=== PATIENT | female | born 1975 | race Caucasian/White ===

== ENCOUNTER 2018-08-29 08:34 | Emergency (ER) | payer MEDICAID ==
[~2018-08-29] VITALS: Ht 154.9 cm; Wt 151.0 kg
[2018-08-29 08:40] VITALS: BP 112/55
--- NOTE | 2018-08-29 09:01 | NUR ---
PATIENT PRESENTS TO ED WITH C/O WORSENING HEADACHE THROBBING X 8 DAYS--BUT CONSTANT X 2 DAYS NOW WITH NAUSEA---FATIGUED ADMITS C-PAP NOT FITTING /WORKING FOR HER WELL---ALSO ADDS DEPRESSED THAT HER IS ADMITTED FULL CLEAR SPEECH, AMBULATORY WITH STEADY GAIT, EQUAL OILSEED MEAT PRESSER, NO FACIAL DROOP NOTED--- .DENIES V/D; SKIN IS PINK/WARM/DRY; AAOX4 WITH EVEN AND STEADY GAIT; LUNGS CLEAR BL; HR EVEN AND REGULAR; PT DENIES ANY FEVER, CP, SOB, OR COUGH AT THIS TIME; PATIENT STATES PAIN OF 10/10 AT THIS TIME; VSS; PATIENT POSITIONED FOR COMFORT; HOB ELEVATED; BEDRAILS UP X2; BED DOWN. ER MD MADE AWARE OF PT STATUS.
[2018-08-29] MEDS ORDERED: KETOROLAC 30 MG/ML VIAL IVP ONE (09:05)
[2018-08-29] MEDS ORDERED: PROCHLORPERAZINE 10 MG/2 ML VIAL IVP ONE (09:05)
--- NOTE | 2018-08-29 09:55 | NUR ---
pt sitting edge perry brady c/o headache persist---closed curtains , turned off lights to minimize external stimuli---md notified pt remains with headache-- will continue to observe for pain control
[2018-08-29 10:01] LABS: BASOPHILS % (AUTO) 0.5 % (0.0-2.0); EOSINOPHILS # (AUTO) 0.2 K/uL (0-0.4); EOSINOPHILS % (AUTO) 1.7 % (0.0-4.0); HEMATOCRIT 39.7 % (36-48); HEMOGLOBIN 12.7 g/dL (12.0-16.0); LYMPHOCYTES # (AUTO) 1.7 K/uL (2.5-16.5); LYMPHOCYTES % (AUTO) 19.2 % (20.5-51.1); MEAN CORPUSCULAR HEMOGLOBIN 28 pg (27-31); MEAN CORPUSCULAR HGB CONC 32 g/dL (33-37); MEAN CORPUSCULAR VOLUME 88.2 fL (80-94); MONOCYTES # (AUTO) 0.6 K/uL (0.8-1.0); MONOCYTES % (AUTO) 7.1 % (1.7-9.3); NEUTROPHILS # (AUTO) 6.4 K/uL (1.8-7.7); NEUTROPHILS % (AUTO) 71.5 % (42.2-75.2); PLATELET COUNT (AUTO) 178 K/uL (140-450); RED CELL DISTRIBUTION WIDTH 13.7 % (11.6-13.7)
[2018-08-29] MEDS ORDERED: MORPHINE SULFATE 2 MG/ML SYR IVP ONE (10:05)
[2018-08-29 10:08] LABS: CARBON DIOXIDE 39.4 mmol/L (21-32); CREATININE 0.5 mg/dL (0.6-1.3); POTASSIUM 4.4 mmol/L (3.5-5.1)
[2018-08-29 10:11] LABS: ALBUMIN 2.9 g/dL (3.4-5.0); TOTAL BILIRUBIN 0.2 mg/dL (0.0-1.0)
[2018-08-29 10:48] VITALS: BP 122/59
--- NOTE | 2018-08-29 10:48 | NUR ---
Patient discharged with v/s stable. Written and verbal after care instructions given and explained. Patient alert, oriented and verbalized understanding of instructions. Ambulatory with steady gait. All questions addressed prior to discharge. ID band removed. Patient advised to follow up with PMD. Rx of norco/zofran odt given. Patient educated on indication of medication including possible reaction and side effects. Opportunity to ask questions provided and answered. handed pt nc used to also use at home---as she states she also uses oxygen at home.
[2018-11-17] MEDS ORDERED: BUDE180P IH (10:12)
[2018-11-17] MEDS ORDERED: IBUP-1801 PO (10:19)
== END 2018-08-29 10:41 | disposition home or self-care (01) ==
LOC: MED 08:34
DX: R51 Headache (principal); F43.9 Reaction to severe stress, unspecified; G47.30 Sleep apnea, unspecified; I10 Essential (primary) hypertension; F17.210 Nicotine dependence, cigarettes, uncomplicated
CPT/HCPCS: 36415; 71045; 80053; 81002; 81025; 83880; 84484; 85025; 93005; 96374; 96375; 99284; J0780; J1885; J2270; Q0092

== ENCOUNTER 2018-08-31 06:05 | Inpatient (IN) | payer MEDICAID ==
[~2018-08-31] VITALS: Ht 157.5 cm; Wt 190.5 kg
[2018-08-31 06:10] VITALS: BP 89/56
--- NOTE | 2018-08-31 06:10 | NUR ---
TO BED # 04 VIA WHEEL CHAIR
--- NOTE | 2018-08-31 06:10 | NUR ---
BIB FAMILY. C/O SEVERE STARK, SOB/DYAPNEA X5 DAYS. LUNGS CLEAR BILAT WITH DIMINISHED BASES. PT IN RESPIRATORY DISTRESS. O2SAT 66% AT RA. AFEBRILE. TACKY AT 116. WHEEL CHAIR ASSISTED FROM LOBBY TO BED 4. STATES NO PAST MEDICAL HX. WAS ADMITTED AND RELEASED ON Wednesday08/29/17 AND DISCHARGED SAME DAY, ACCORDING TO PT. POSITIONED IN BED WITH HOB ELEVATED. X2 SIDE RAIL UP. ER MD AWARE. CONTINUE TO MONITOR.
[2018-08-31] MEDS ORDERED: NACL 0.9% 500 ML IV SCH (06:20)
--- NOTE | 2018-08-31 06:33 | NUR ---
Respiratory Therapist at bedside for respiratory intervention.
[2018-08-31 06:41] LABS: BASOPHILS % (AUTO) 0.3 % (0.0-2.0); EOSINOPHILS % (AUTO) 0.1 % (0.0-4.0); HEMATOCRIT 41.4 % (36-48); HEMOGLOBIN 12.9 g/dL (12.0-16.0); LYMPHOCYTES # (AUTO) 1.2 K/uL (2.5-16.5); LYMPHOCYTES % (AUTO) 11.1 % (20.5-51.1); MEAN CORPUSCULAR HEMOGLOBIN 28 pg (27-31); MEAN CORPUSCULAR HGB CONC 31 g/dL (33-37); MEAN CORPUSCULAR VOLUME 89.6 fL (80-94); MONOCYTES # (AUTO) 0.4 K/uL (0.8-1.0); MONOCYTES % (AUTO) 3.8 % (1.7-9.3); NEUTROPHILS # (AUTO) 9.3 K/uL (1.8-7.7); NEUTROPHILS % (AUTO) 84.7 % (42.2-75.2); PLATELET COUNT (AUTO) 192 K/uL (140-450); RED BLOOD CELL COUNT(AUTO) 4.61 MIL/uL (4.20-5.40); RED CELL DISTRIBUTION WIDTH 13.8 % (11.6-13.7)
--- NOTE | 2018-08-31 06:41 | NUR ---
X-Ray at bedside.
--- NOTE | 2018-08-31 06:48 | NUR ---
REVIEWED ABG SAMPLE REPORT WITH DR VELMA RETANA
[2018-08-31 07:00] LABS: ALBUMIN 3.1 g/dL (3.4-5.0); ANION GAP 4.6 (8-16); CARBON DIOXIDE 39.7 mmol/L (21-32); CREATININE 1.1 mg/dL (0.6-1.3); POTASSIUM 4.3 mmol/L (3.5-5.1); TOTAL BILIRUBIN 0.4 mg/dL (0.0-1.0)
--- NOTE | 2018-08-31 07:02 | NUR ---
PATIENT PLACED ON BIPAP BY RT
[2018-08-31] MEDS ORDERED: NACL 0.9% 1,000 ML IV ONE (07:15)
--- NOTE | 2018-08-31 07:20 | NUR ---
RECEIVED REPORT FROM SELWYN LARIOS.
[2018-08-31 07:21] LABS: PROTHROMBIN TIME 9.9 secs (10.8-13.4)
[2018-08-31] MEDS ORDERED: cefTRIAXone 1,000 MG VIAL ONE (07:41)
[2018-08-31] MEDS ORDERED: NACL 0.9% 1,000 ML IV SCH (07:51)
[2018-08-31] MEDS ORDERED: ONDANSETRON 4 MG/2 ML VIAL IM/IVP PRN (07:55)
[2018-08-31] MEDS ORDERED: MORPHINE SULFATE 2 MG/ML SYR IVP PRN (07:55)
[2018-08-31] MEDS ORDERED: DOCUSATE SODIUM 100 MG GELCAP PO PRN (07:55)
[2018-08-31] MEDS ORDERED: HYDROcodone/APAP 7.5/325 MG 1 TAB PO PRN (07:55)
[2018-08-31] MEDS ORDERED: ACETAMINOPHEN 325 MG TAB PO PRN (07:55)
[2018-08-31] MEDS ORDERED: ALBUTEROL SULFATE/IPRATROPIU 3 ML SOL IH PRN (08:20)
[2018-08-31] MEDS ORDERED: NITROGLYCERIN 0.4 MG TAB SL PRN (08:40)
[2018-08-31 08:47] LABS: BILIRUBIN,URINE 1+ (NEGATIVE); BLOOD, URINE NEGATIVE (NEGATIVE); LEUKOCYTE ESTERASE ,URINE NEGATIVE (NEGATIVE); NITRITE, URINE NEGATIVE (NEGATIVE); UGLUCOSE NEGATIVE (NEGATIVE)
[2018-08-31 08:54] LABS: BARBITURATE, URINE NEG. ng/ml (NEG <=200); BENZODIAZEPINE, URINE NEG. ng/mL (NEG <=200); CANNABINOID, URINE POS. ng/mL (NEG <=50); COCAINE, URINE NEG. ng/mL (NEG <=300); OPIATE, URINE NEG. ng/mL (NEG <=2000); PHENCYCLIDINE SCREEN,URINE NEG. ng/mL (NEG <=25)
[2018-08-31 08:55] LABS: COLOR,URINE ORANGE (YELLOW)
[2018-08-31 08:57] LABS: APPEARANCE,URINE SLIGHTLY HAZY (CLEAR)
[2018-08-31 08:58] LABS: RBC,URINE 0-5 /HPF (0-5); WBC,URINE 0-5 /HPF (0-5)
[2018-08-31 08:59] LABS: HYALINE CASTS, URINE 0-10 /LPF (None Seen)
[2018-08-31] MEDS ORDERED: methylPREDNISolone SS 125 MG/2 ML VIAL IVP SCH (09:00)
[2018-08-31] MEDS: METOPROLOL 25 MG TAB PO SCH ×2 (09:00→20:34)
[2018-08-31] MEDS: ATORVASTATIN 20 MG TAB PO SCH (09:00)
[2018-08-31 09:06] LABS: CHOL/HDL RATIO 2.7 (1-4.5); MAGNESIUM 2.1 mg/dL (1.8-2.4); PHOSPHORUS 3.9 mg/dL (2.5-4.9); THYROID STIMULATING HORMONE 0.72 uIU/mL (0.34-3.74)
[2018-08-31] MEDS: ASPIRIN 81 MG TAB.CHEW PO SCH (09:53)
[2018-08-31] MEDS: PANTOPRAZOLE 40 MG TABEC PO SCH (09:53)
[2018-08-31 10:28] VITALS: BP 108/73
--- NOTE | 2018-08-31 10:29 | NUR ---
Respiratory Therapist at bedside. NADIYAS
--- NOTE | 2018-08-31 10:50 | NUR ---
RECEIVED PT FROM ED NURSE CHASE. PT IS ON BIPAP FIO2 40%. O2 SAT IS CURRENTLY 95% AND PT IS NOT C/O SOB OR CHEST PAIN. PT IS A&O X 4, AND PRIMARILY TRISTANIAN SPEAKING. SKIN IS INTACT. IV SITE IS IN THE L AC, 20 G. PT IS CURRENTLY NPO. PY SAYS THAT SHE IS AMBULATORY AT BASELINE, BUT HASN'T WALKED SINCE YESTERDAY, WHEN HER SYMPTOMS BEGAN. FALL PRECAUTIONS PUT IN PLACE. TELE MONITORING IN PLACE. WILL CONTINUE TO MONITOR.
--- NOTE | 2018-08-31 11:02 | NUR ---
Patient will be admitted to care of Dr. Plascencia. Admited to telemetry floor, RM [id number]. Belongings list completed. Report to SELWYN Shea.
[2018-08-31] MEDS: ALBUTEROL SULFATE/IPRATROPIU 3 ML SOL IH SCH ×4 (12:02→23:30)
[2018-08-31] MEDS ORDERED: DEXT 5% / NACL 0.45% 1,000 ML IV SCH (12:20)
[2018-08-31] MEDS: NACL 0.9% 1,000 ML IV SCH (12:39)
[2018-08-31] MEDS: PIPER/TAZO 3.375GM/D5W PREMIX 50 ML IV SCH ×2 (13:45→20:32)
--- NOTE | 2018-08-31 13:45 | NUR ---
DR ZELALEM WILCOX AT BEDSIDE BIPAP RATE INCREASED TO [address] HARTLEY AND [place]/RN AWARE ABG ORDERED TO BE DRAWN BY 1600 DR NARDA WILCOX REQUESTED TO BE CALLED WITH ABG SAMPLE REPORT RESULTS
[2018-08-31 13:58] VITALS: BP 101/67
--- NOTE | 2018-08-31 15:27 | NUR ---
NEREIDA RADICAL-7 CONTINUOS PULSE OXIMETER AT BEDSIDE ON AND FUNCTIONING WELL LOW SATURATION ALARM SET AT 90%
[2018-08-31 16:00] VITALS: BP 99/52
--- NOTE | 2018-08-31 16:00 | NUR ---
PT HAVING ABD ULTRASOUND AT THIS TIME.
--- NOTE | 2018-08-31 16:09 | NUR ---
ULTRASOUND IN PROGRESS NUTRITION EDUCATOR TO ATTEMPT ORDERED ABG AT A LATER TIME
[2018-08-31] MEDS: BLOOD GLUCOSE MONITORING 1 DEV DEV FS SCH ×2 (16:30→21:22)
--- NOTE | 2018-08-31 17:23 | NUR ---
PAGED DR NARDA WILCOX [phone] TO REVIEW ABG SAMPLE REPORT
--- NOTE | 2018-08-31 17:24 | NUR ---
CALLED DR NANO HARTLEY [phone] TO REVIEW ABG SAMPLE REPORT FOREMENTIONED NOT AVAILABLE GAVE RESULTS DR JESSICA RENAE
--- NOTE | 2018-08-31 17:28 | NUR ---
CALL BACK FROM DR BOLA GLORIA REVIEWED ABG SAMPLE REPORT MD STATES "CONTINUE WITH BIPAP" DR. JESSICA RENAE AWARE OF FOREMENTIONED
--- NOTE | 2018-08-31 17:52 | NUR ---
PT RESTING COMFORTABLY AT THIS TIME, NO S/S OF SOB OR ACUTE DISTRESS NOTED. NO C/O PAIN. PT WAS ASSISTED TO THE BEDPAN. CONTINUING TO MONITOR.
--- NOTE | 2018-08-31 18:49 | NUR ---
REMOVED PT'S BIPAP MASK TO SEE HOW PT'S O2 SATS WITHOUT THE MASK, PER MD ORDER. PT DESATED TO 89% WITHIN A MINUTE. BIPAP MASK PLACED BACK ON PT. O2 SAT INCREASED BACK TO 95%.
--- NOTE | 2018-08-31 19:25 | NUR ---
PT ENDORSED TO HOSPITAL SECRETARY IN STABLE CONDITION.
--- NOTE | 2018-08-31 19:26 | NUR ---
RECEIVED BEDSIDE REPORT FROM DAY SHIFT RN. Angel/ОЛЕГ. ABLE TO MAKE NEEDS KNOWN. DISCUSSED POC WITH PT. VERBALIZED UNDERSTANDING. NO SIGNS OF RESP DISTRESS OR DISCOMFORT. PT CURRENTLY ON BIPAP. TELE MONITOR. FALL RISK PREC IN PLACE. STANDARD PRECAUTIONS. PT NPO, SIGN ABOVE BED. LAC 20G NS @100. INFUSING WELL. CLEAN DRY AND INTACT. SKIN IS INTACT. BEDPAN AT BEDSIDE. TRAPEZE ABOVE BED. BED IN LOW POSITION. CALL LIGHT WITHIN REACH. WILL CONTINUE TO MONITOR.
--- NOTE | 2018-08-31 19:40 | NUR ---
RECEIVED PATIENT ON BIPAP CURRENT SETTINGS: 02/12 RATE 20 FIO2 40%. PATIENT IS AWAKE, ALERT AND RESPONSIVE. PATIENT DESAT TO 87% TWO TIMES, DID NOT MAKE ANY CHANGES TO CURRENT SETTINGS. INLINE DUONEB TREATMENT GIVEN WITH NO ADVERSE EFFECTS.
[2018-08-31 20:00] VITALS: BP 124/60
[2018-08-31] MEDS: LACTULOSE 20 GM/30 ML UDC PO SCH (20:32)
[2018-08-31] MEDS: methylPREDNISolone SS 125 MG/2 ML VIAL IVP SCH (20:33)
--- NOTE | 2018-08-31 20:50 | NUR ---
ASSISTED PT TO USE BEDPAN. PT REPOSITIONED. TOLERATED WELL. NO SOB. ADMINISTERED MEDS SCHEDULED. EDUCATED ON SIDE EFFECTS. VERBALIZED UNDERSTANDING. TOLERATED WELL. WILL CONTINUE TO MONITOR.
--- NOTE | 2018-08-31 20:58 | NUR ---
ROUTINE BIPAP CHECK AND PATIENT ASSESSMENT. B/S: CLEAR IN THE UPPER LOBES AND DIMINISHED IN THE BASES. DECREASED FIO2 FROM 40% TO 30%, SPO2 MAINTAINED AT 94%. PATIENT IS ASLEEP AND TOLERATING BIPAP.
--- NOTE | 2018-08-31 22:20 | NUR ---
PT IS SLEEPING IN BED. EASILY AROUSABLE. NO DISTRESS NOTED. WILL CONTINUE TO MONITOR.
[2018-09-01] VITALS: BP 119/59
--- NOTE | 2018-09-01 00:05 | NUR ---
VITALS TAKEN. TOLERATED WELL. COMPLETED AND REPLACED NS @80ML/HR ORDERED. CLEAN DRY INTACT. NO COMPLAINTS AT THIS TIME. NO SIGNS OF DISTRESS. WILL CONTINUE TO MONITOR.
[2018-09-01] MEDS: NACL 0.9% 1,000 ML IV SCH ×2 (00:37→11:37)
--- NOTE | 2018-09-01 02:06 | NUR ---
PT SLEEPING IN BED. EASILY AROUSABLE. NO PAIN OR COMPLAINTS AT THIS TIME. ABLE TO MAKE NEEDS KNOWN. PT ON BIPAP 40%. NO SIGNS OF RESP DISTRESS. NO SOB. WILL CONTINUE TO MONITOR.
--- NOTE | 2018-09-01 03:35 | NUR ---
ROUTINE BIPAP CHECK AND PATIENT ASSESSMENT. PATIENT IS SLEEPING. ADJUSTED MASK TO TO PATIENTS FACE IT WAS COMING UP PAST HER BOTTOM LIP. VOLUMES AND PRESSURES MAINTAINED BACK TO NORMAL. SPO2 PRE TX 93%. DUONEB TREATMENT GIVEN INLINE WITH NO INCIDENT.
[2018-09-01] MEDS: ALBUTEROL SULFATE/IPRATROPIU 3 ML SOL IH SCH ×6 (03:39→23:00)
[2018-09-01 04:00] VITALS: BP 108/61
[2018-09-01] MEDS: PIPER/TAZO 3.375GM/D5W PREMIX 50 ML IV SCH (05:31)
[2018-09-01] MEDS: methylPREDNISolone SS 125 MG/2 ML VIAL IVP SCH ×2 (05:31→12:41)
--- NOTE | 2018-09-01 05:45 | NUR ---
ASSISTED PT TO USE BEDPAN. CHANGED WET LINENS. REPOSITIONED. ADMINISTERED MEDS SCHEDULED. EDUCATED AND VERBALIZED UNDERSTANDING. TOLERATED WELL. WILL CONTINUE TO MONITOR.
[2018-09-01] MEDS: BLOOD GLUCOSE MONITORING 1 DEV DEV FS SCH ×4 (06:04→20:33)
[2018-09-01 06:29] LABS: T4 (THYROXINE) 7.3 ug/dL (4.5-12.0)
[2018-09-01 06:53] LABS: PHOSPHORUS 3.1 mg/dL (2.5-4.9)
[2018-09-01 06:55] LABS: BASOPHILS % (AUTO) 0.1 % (0.0-2.0); HEMATOCRIT 38.8 % (36-48); HEMOGLOBIN 12.6 g/dL (12.0-16.0); LYMPHOCYTES # (AUTO) 1.3 K/uL (2.5-16.5); LYMPHOCYTES % (AUTO) 13.9 % (20.5-51.1); MEAN CORPUSCULAR HEMOGLOBIN 28 pg (27-31); MEAN CORPUSCULAR HGB CONC 32 g/dL (33-37); MEAN CORPUSCULAR VOLUME 87.3 fL (80-94); MONOCYTES # (AUTO) 0.3 K/uL (0.8-1.0); MONOCYTES % (AUTO) 3.7 % (1.7-9.3); NEUTROPHILS # (AUTO) 7.7 K/uL (1.8-7.7); NEUTROPHILS % (AUTO) 82.3 % (42.2-75.2); PLATELET COUNT (AUTO) 191 K/uL (140-450); RED BLOOD CELL COUNT(AUTO) 4.45 MIL/uL (4.20-5.40); RED CELL DISTRIBUTION WIDTH 13.3 % (11.6-13.7); WHITE BLOOD COUNT (AUTO) 9.3 K/uL (4.8-10.8)
[2018-09-01] MEDS ORDERED: DEXT 5% / NACL 0.45% 1,000 ML IV SCH (07:00)
--- NOTE | 2018-09-01 07:06 | NUR ---
REVIEWED ABG SAMPLE REPORT WITH DR HARTLEY NO NEW ORDERS MD REQUEST VARIETY PERFORMER TO CALL ON-CALL PATIENT RELATIONS COORDINATOR
--- NOTE | 2018-09-01 07:10 | NUR ---
RECEIVED BEDSIDE REPORT FROM NIGHT NURSE. DISCUSSED POC, PT IS CURRENTLY ON BIPAP AT 30% WITH OXYGEN SATURATION MAINTAINING BETWEEN 94-96% THROUGHOUT REPORT AND BREATHING EQUAL AND WITHOUT OBVIOUS DISTRESS WITH MASK SHOWING NO SIGNS OF AIR LEAKAGE. PT HAS LEFT ANTECUBITAL IV INFUSING D5/.45NS AT 80ML/HR. ALL SAFETY MEASURES IN PLACE AT THIS TIME. PT AOX4.
[2018-09-01 07:13] LABS: ANION GAP 8.3 (8-16); CARBON DIOXIDE 36.3 mmol/L (21-32); CREATININE 0.6 mg/dL (0.6-1.3); POTASSIUM 4.6 mmol/L (3.5-5.1)
--- NOTE | 2018-09-01 07:15 | NUR ---
PAGED ON-CALL GLASS BLOWING LATHE OPERATOR [phone] TO REVIEW ABG SAMPLE REPORT
--- NOTE | 2018-09-01 07:16 | NUR ---
CALL BACK FOR DR NARDA WILCOX REVIEWED ABG SAMPLE REPORT NEW ORDERS: BIPAP PRN FOR SOB AND SLEEP OFF BIPAP KEEP SATURATION GREATER THAN 89%
--- NOTE | 2018-09-01 07:20 | NUR ---
ENDORSED PT TO DAY SHIFT RN. PT IN STABLE CONDITION.
--- NOTE | 2018-09-01 07:30 | NUR ---
PATIENT WAS AWAKE, ALERT. RESPIRATION EVEN, UNLABOR ON BIPAP 30%. SKIN DRY AND WARM. IV PATENT AND INTACT. DENIED PAIN AT THIS TIME. PLAN OF CARE WAS DISCUSSED WITH PATIENT. BED AT LOW POSITION, SIDE RAILS UP. CALL LIGHT WITHIN REACH
--- NOTE | 2018-09-01 07:57 | NUR ---
AWAKE AND ALERT VERBALLY RESPONSIVE ORDERED REMOVED BIPAP TO MASK HHN THERAPY AND RESPIRATORY DRUG GIVEN AT THIS TIME RESIDENTIAL CARE FACILITY MANAGER TO MONITOR
[2018-09-01 08:00] VITALS: BP 121/100
--- NOTE | 2018-09-01 08:12 | NUR ---
POST [facility]N THERAPY PLACED PATIENT ON SUPPLEMENTAL OXYGEN AT 3 LPM VIA OXYMIZER TECHNICAL TRAINING MANAGER TO MONITOR FOR SATURATION AND SOB
--- NOTE | 2018-09-01 08:21 | NUR ---
PATIENT HAS BEEN SCREENED AND CATEGORIZED HIGH NUTRITION RISK. PATIENT WILL BE SEEN WITHIN 1-2 DAYS OF ADMISSION. 09/01/[address]
[2018-09-01 08:23] LABS: HEPATITIS A ANTIBODY IGM Negative (Negative); HEPATITIS B CORE AB TOTAL Negative (Negative); HEPATITIS B SURFACE ANTIBODY Non Reactive (.); HEPATITIS B SURFACE ANTIGEN Negative (Negative)
[2018-09-01] MEDS: ATORVASTATIN 20 MG TAB PO SCH (09:30)
[2018-09-01] MEDS: LACTOBACILLUS RHAMNOSUS GG 1 EACH CAP PO SCH (09:30)
[2018-09-01] MEDS: ASPIRIN 81 MG TAB.CHEW PO SCH (09:30)
[2018-09-01] MEDS: PANTOPRAZOLE 40 MG TABEC PO SCH (09:30)
[2018-09-01] MEDS: LACTULOSE 20 GM/30 ML UDC PO SCH ×2 (09:31→20:33)
--- NOTE | 2018-09-01 09:44 | NUR ---
ADMINISTERED MEDICATIONS, PT ON OXIMIZER, 2L TOLERATED WELL WITH BREATHING EQUAL AND UNLABORED. PT CURRENTLY SITTING UP EATING WITH NO REQUESTS OR COMPLAINTS AT THIS TIME.
--- NOTE | 2018-09-01 11:35 | NUR ---
RN AND SECOND LANGUAGE TUTOR AT BEDSIDE NO EVIDENCE OF SOB NOTED DIESEL ENGINE INSPECTOR TO ATTEMPT HHN THERAPY AND RESPIRATORY DRUG AT A LATER TIME
[2018-09-01 11:58] VITALS: BP 130/62
--- NOTE | 2018-09-01 12:44 | NUR ---
ADMINISTERED MEDICATION, PT IS SITTING UP IN BED EATING AND USING HER PHONE FREE OF SIGNS OF OBVIOUS DISTRESS.
--- NOTE | 2018-09-01 13:00 | NUR ---
PATIENT WAS ASSISTED TO GO TO BATHROOM, AMBULATORY WITH STEADY GAIT. NO DISTRESS NOTED
--- NOTE | 2018-09-01 13:35 | NUR ---
PT RESTING IN BED CURRENTLY WATCHING TV WITH NO OBVIOUS SIGNS OF DISTRESS.
--- NOTE | 2018-09-01 15:46 | NUR ---
09/01/18 RD INITIAL ASSESSMENT COMPLETED PLEASE REFER TO NUTRITION ASSESSMENT UNDER CARE ACTIVITY FOR ESTIMATED NUTRITIONAL NEEDS. 1. CONTINUE REGULAR DIET TOLERATED 2. RD PROVIDED WEIGHT MANAGEMENT NUTRITION THERAPY. PT ACCEPTED EDUCATION 3. RD TO FOLLOW-UP 3-5 DAYS, MODERATE RISK NATASHA LEE RD
[2018-09-01 16:00] VITALS: BP 109/54
--- NOTE | 2018-09-01 16:01 | NUR ---
PT RESTING IN BED WITH NO REQUESTS AT THIS TIME, FREE OF OBVIOUS SIGNS OF DISTRESS. PT AND SON AT BEDSIDE.
--- NOTE | 2018-09-01 17:22 | NUR ---
PT CURRENTLY RESTING IN BED SPEAKING WITH FAMILY WHO IS AT BEDSIDE. PT AND FAMILY DENY ANY REQUESTS AT THIS TIME AND PT IS FREE OF OBVIOUS SIGNS OF DISTRESS.
--- NOTE | 2018-09-01 17:41 | NUR ---
PATIENT WAS ASSISTED TO SIT UP AT EOB. PATIENT COMPLAINED OF DIZZINESS, AND FEELING NAUSEOUS. PATIENT WAS ADVISED TO STAY IN BED UNTIL THE DIZZINESS IS GONE AND REPOSITION SLOWLY. PATIENT VERBALIZED UNDERSTANDING.
--- NOTE | 2018-09-01 18:07 | NUR ---
PATIENT WAS AWAKE, ALERT, SITING AT EOB, EATING DINNER COMFORTABLY. RESPIRATION EVEN, UNLABOR ON 2L OXIMIZER. DENIED DIZZINESS, N/V. NO DISTRESS NOTED AT THIS TIME. FAMILY AT BEDSIDE. CALL LIGHT WITHIN REACH
--- NOTE | 2018-09-01 19:05 | NUR ---
GAVE REPORT TO CENTER MACHINE OPERATOR NURSE FOR CONTINUITY OF CARE. PATIENT IN STABLE CONDITION.
--- NOTE | 2018-09-01 19:25 | NUR ---
RECEIVED FROM AM RN IN BED AWAKE AND ALERT. VERBALIZING WELL IN CZE[place]. MALE VISITOR IN HERE VISITING AT THIS TIME. CALL LIGHT WITH IN REACH. ON AT 1.5 LPM/NC . 02 SAT AT 92 -93 %. NO COMPLAINTS AT THIS TIME. CARE PLANS FOR THE NIGHT DISCUSSED WITH HER. TELEMETRY MONITORING. RE-ORIENTED TO CALL LIGHT USE FOR ANY HELP- SHE MAY NEED OR IF IN PAIN. IVF SITE TO LAC#20 INTACT AND NO INFILTRATION NOTED.
[2018-09-01 20:00] VITALS: BP 104/56
[2018-09-01] MEDS: methylPREDNISolone SS 40 MG/ML VIAL IVP SCH (20:33)
--- NOTE | 2018-09-01 21:48 | NUR ---
PT WAS ASSISTED TO USE BED UGARTE. TOLERATED WELL. NO SIGNS OF DISTRESS NOTED. NO COMPLAINTS AT THIS TIME. OXIMIZER REMAINS AT 1.5L. WILL CONTINUE TO MONITOR.
--- NOTE | 2018-09-01 22:58 | NUR ---
PT REQUESTED TO BE ON BIPAP. MADE RESPIRATORY THERAPIST AWARE.
[2018-09-02] VITALS: BP 109/47
--- NOTE | 2018-09-02 01:15 | NUR ---
READJUSTED BIPAP MASK DUE TO NOT FITTING WELL. TOLERATED WELL. NO SOB. NO SIGN OF DISTRESS NOTED. O2 SAT AT 96%. BED IN LOW POSITION. CALL LIGHT WITHIN REACH. WILL CONTINUE TO MONITOR.
--- NOTE | 2018-09-02 03:09 | NUR ---
PT SLEEPING IN BED. EASILY AROUSABLE. NO SIGNS OF RESP DISTRESS. BIPAP FITTING WELL. NO AIR LEAKAGE. O2 SAT @ 98. BED IN LOW POSITION. CALL LIGHT WITHIN REACH. WILL CONTINUE TO MONITOR.
[2018-09-02] MEDS: ALBUTEROL SULFATE/IPRATROPIU 3 ML SOL IH SCH ×6 (03:19→22:51)
[2018-09-02 04:00] VITALS: BP 135/76
--- NOTE | 2018-09-02 05:00 | NUR ---
ADMINISTERED MEDS PER ORDER. EDUCATED ON SIDE EFFECTS. VERBALIZED UNDERSTANDING. TOLERATED WELL. PT REMAINS ON BIPAP WITH O2 SAT 97%-100%. NO COMPLAINTS. DENIES PAIN. WILL CONTINUE TO MONITOR. CALL LIGHT WITHIN REACH.
[2018-09-02] MEDS: methylPREDNISolone SS 40 MG/ML VIAL IVP SCH ×3 (05:09→21:16)
[2018-09-02 06:37] LABS: BASOPHILS % (AUTO) 0.1 % (0.0-2.0); HEMATOCRIT 39.2 % (36-48); HEMOGLOBIN 12.8 g/dL (12.0-16.0); LYMPHOCYTES # (AUTO) 1.6 K/uL (2.5-16.5); LYMPHOCYTES % (AUTO) 15.4 % (20.5-51.1); MEAN CORPUSCULAR HEMOGLOBIN 29 pg (27-31); MEAN CORPUSCULAR HGB CONC 33 g/dL (33-37); MEAN CORPUSCULAR VOLUME 87.4 fL (80-94); MONOCYTES # (AUTO) 0.8 K/uL (0.8-1.0); MONOCYTES % (AUTO) 7.6 % (1.7-9.3); NEUTROPHILS # (AUTO) 7.8 K/uL (1.8-7.7); NEUTROPHILS % (AUTO) 76.9 % (42.2-75.2); PLATELET COUNT (AUTO) 214 K/uL (140-450); RED BLOOD CELL COUNT(AUTO) 4.48 MIL/uL (4.20-5.40); RED CELL DISTRIBUTION WIDTH 13.5 % (11.6-13.7); WHITE BLOOD COUNT (AUTO) 10.2 K/uL (4.8-10.8)
--- NOTE | 2018-09-02 06:42 | NUR ---
WILL ENDORSE PT TO AM SHIFT RN FOR CONTINUITY OF CARE. PT ALERT AND ORIENTED. IN STABLE CONDITION.
[2018-09-02 06:49] LABS: MAGNESIUM 2.1 mg/dL (1.8-2.4); PHOSPHORUS 4.1 mg/dL (2.5-4.9)
[2018-09-02 06:50] LABS: CARBON DIOXIDE 35.3 mmol/L (21-32); CREATININE 0.6 mg/dL (0.6-1.3); POTASSIUM 4.3 mmol/L (3.5-5.1)
--- NOTE | 2018-09-02 07:26 | NUR ---
RECEIVED BEDSIDE REPORT FROM MEDICAL OFFICE SCHEDULER NURSE FOR CONTINUITY OF CARE. PATIENT IS AOX4. PATIENT IS RESTING ON BED AT THIS TIME. PATIENT SPEAKS HEBREW AND ABLE TO UNDERSTAND AND COMMUNICATE IN MINIMAL MONGOLIAN. PATIENT IS ABLE TO FOLLOW SIMPLE COMMANDS AND MAKE NEEDS KNOWN. RESPIRATION IS EVEN AND UNLABORED. PATIENT IS ON BIPAP AT THIS TIME AND SPO2 IS AT 98%. DENIES PAIN AND SOB. NO SIGNS OF DISTRESS NOTED. IV ON LAC 20G, INTACT AND CLEAN, INFUSING PER MD ORDER. SKIN CLEAN AND INTACT. PATIENT IS BEDREST AND ABLE TO USE BEDPAN. DISCUSSED PLAN OF CARE WITH PATIENT AND PATIENT VERBALIZED UNDERSTANDING. SAFETY MEASURES IN PLACE. TELE MONITOR ATTACHED. BED IN LOW POSITION AND CALL LIGHT WITHIN REACH. INSTRUCTED PATIENT TO USE THE CALL LIGHT FOR ANY ASSISTANCE AND PATIENT WAS AWARE.
[2018-09-02 08:00] VITALS: BP 113/63
[2018-09-02] MEDS: BLOOD GLUCOSE MONITORING 1 DEV DEV FS SCH ×4 (08:06→21:34)
--- NOTE | 2018-09-02 08:19 | NUR ---
Rotary Cutter Feeder Note: Late entry for 09/01/18: Per patient, the c-pap she has at home does not work properly and home O2 tank is empty. She stated [facility] helped her obtained c-pap and home O2 tank. She currently has [employer] restricted coverage, which does not cover DME. She does not know how [facility] was able to obtain c-pap and home O2 tank. She does not know which DME company delivered DME. I requested for [employer]ard Abatement Worker from [employer] to assist patient with [employer] application. Per Jose Rafael, he met with patient and he stated patient does not qualify for full scope [employer], I informed Dr. Sneed of this.
--- NOTE | 2018-09-02 08:35 | NUR ---
RN QUALITY ASSISTED PATIENT TO GO THE BATHROOM AND GOT BACK ON BED. SAFETY MEASURES IN PLACE.
[2018-09-02] MEDS: LACTOBACILLUS RHAMNOSUS GG 1 EACH CAP PO SCH (10:16)
[2018-09-02] MEDS: NACL 0.9% 1,000 ML IV SCH (10:16)
[2018-09-02] MEDS: LACTULOSE 20 GM/30 ML UDC PO SCH ×2 (10:16→21:16)
[2018-09-02] MEDS: PANTOPRAZOLE 40 MG TABEC PO SCH (10:17)
--- NOTE | 2018-09-02 10:17 | NUR ---
ADMINISTERED MEDS PER MD ORDER, PATIENT TOLERATED WELL. PATIENT IS ON 2LPM VIA NC AND SPO2 IS AT 97% AT THIS TIME. DENIES PAIN AND SOB. NO SIGNS OF DISTRESS NOTED. SAFETY MEASURES IN PLACE. TELE MONITOR ATTACHED. BED IN LOW POSITION AND CALL LIGHT WITHIN REACH. INSTRUCTED PATIENT TO USE CALL LIGHT FOR ANY ASSISTANCE AND PATIENT WAS AWARE.
[2018-09-02] MEDS: ATORVASTATIN 20 MG TAB PO SCH (10:18)
[2018-09-02] MEDS: ASPIRIN 81 MG TAB.CHEW PO SCH (10:18)
[2018-09-02 12:00] VITALS: BP 132/77
--- NOTE | 2018-09-02 13:44 | NUR ---
PATIENT IS RESTING ON BED AND WATCHING TV. PATIENT IS ON RA AND SPO2 IS 91% AT THIS TIME DENIES PAIN AND SOB. NO SIGNS OF DISTRESS NOTED. SAFETY MEASURES IN PLACE. BED IN LOW POSITION AND CALL LIGHT WITHIN REACH. INSTRUCTED PATIENT TO USE THE CALL LIGHT FOR ANY ASSISTANCE AND PATIENT WAS AWARE.
--- NOTE | 2018-09-02 15:15 | NUR ---
PATIENT IS TALKING ON HER PHONE. NO SIGNS OF DISTRESS NOTED. SAFETY MEASURES IN PLACE.
[2018-09-02 16:00] VITALS: BP 124/63
--- NOTE | 2018-09-02 17:20 | NUR ---
PATIENT IS WATCHING TV ON BED AT THIS TIME. NO SIGNS OF DISTRESS NOTED. SAFETY MEASURES IN PLACE.
--- NOTE | 2018-09-02 19:28 | NUR ---
ENDORSED PATIENT AT BEDSIDE TO ROD BUSTER NURSE FOR CONTINUITY OF CARE. PATIENT IS IN STABLE CONDITION.
--- NOTE | 2018-09-02 19:29 | NUR ---
RECEIVED BEDSIDE REPORT FROM DAY SHIFT RN. PATIENT IN STABLE CONDITION. NO SIGNS OF DISTRESS ON 2L NC, SAFETY PRECAUTIONS IN PLACE.
[2018-09-02 20:00] VITALS: BP_SYST 128; BP_SYST 138; BP_DIAS 76; BP_DIAS 79
--- NOTE | 2018-09-02 21:38 | NUR ---
ADMINISTERED SCHEDULED MEDICATIONS. NO C/O PAIN AT THIS TIME, SATING AT 95% ON 2L NC, NO SIGNS OF DISTRESS NOTED.
--- NOTE | 2018-09-02 22:39 | NUR ---
2210 PLACED PATIENT ON BIPAP IPAP 16 EPAP 8 RR 20. FIO2 AT 30%. PT SATS ARE 96%. PT TOLERATES BIPAP AT THIS TIME
--- NOTE | 2018-09-02 23:45 | NUR ---
PATIENT SLEEPING ON BIPAP, RR 20 VITAL SIGNS STABLE, NO SIGNS OF DISTRESS, SAFETY PRECAUTIONS IN PLACE.
[2018-09-03] VITALS: BP 138/76
--- NOTE | 2018-09-03 02:24 | NUR ---
PATIENT SLEEPING ON BIPAP, NO SIGNS OF DISTRESS, SPO2 97%, WILL CONTINUE TO MONITOR.
[2018-09-03] MEDS: ALBUTEROL SULFATE/IPRATROPIU 3 ML SOL IH SCH ×5 (03:01→19:59)
[2018-09-03 04:00] VITALS: BP 135/81
[2018-09-03] MEDS: NACL 0.9% 1,000 ML IV SCH (04:00)
--- NOTE | 2018-09-03 05:40 | NUR ---
FOUND PATIENT WITH BIPAP MASK OFF. PT IS DONE WEARING IT. REPLACED PT BACK ON 2LNC. NO SOB NOTED
--- NOTE | 2018-09-03 06:16 | NUR ---
PATIENT AWAKE IN BED, C/O MUSCULAR PAIN ON RIGHT SIDE OF NECK. STATES PAIN IS A 2/10 AND DOES NOT WANT MEDICATION AT THIS TIME.
--- NOTE | 2018-09-03 07:15 | NUR ---
ENDORSED PATIENT TO DAY SHIFT RN IN STABLE CONDITION. SATING AT 95% ON 2LNC.
--- NOTE | 2018-09-03 07:17 | NUR ---
RECEIVED BEDSIDE REPORT FROM EVENT STAFF NURSE FOR CONTINUITY OF CARE. PATIENT IS AOX4. PATIENT IS RESTING ON BED AT THIS TIME. PATIENT SPEAKS AZERI AND ABLE TO UNDERSTAND AND COMMUNICATE IN MINIMAL BELGIAN. PATIENT IS ABLE TO FOLLOW SIMPLE COMMANDS AND MAKE NEEDS KNOWN. RESPIRATION IS EVEN AND UNLABORED. PATIENT IS ON 2LPM VIA NC AT THIS TIME AND SPO2 IS AT 94%. DENIES PAIN AND SOB. NO SIGNS OF DISTRESS NOTED. IV ON LAC 20G, INTACT AND CLEAN, SL. SKIN CLEAN AND INTACT. PATIENT IS BEDREST AND ABLE TO USE BEDPAN. DISCUSSED PLAN OF CARE WITH PATIENT AND PATIENT VERBALIZED UNDERSTANDING. SAFETY MEASURES IN PLACE. TELE MONITOR ATTACHED. BED IN LOW POSITION AND CALL LIGHT WITHIN REACH. INSTRUCTED PATIENT TO USE THE CALL LIGHT FOR ANY ASSISTANCE AND PATIENT WAS AWARE.
[2018-09-03 08:00] VITALS: BP 111/64
[2018-09-03] MEDS: BLOOD GLUCOSE MONITORING 1 DEV DEV FS SCH ×2 (08:18→11:48)
[2018-09-03] MEDS: ASPIRIN 81 MG TAB.CHEW PO SCH (08:48)
[2018-09-03] MEDS: LACTOBACILLUS RHAMNOSUS GG 1 EACH CAP PO SCH (08:48)
[2018-09-03] MEDS: PANTOPRAZOLE 40 MG TABEC PO SCH (08:48)
[2018-09-03] MEDS: ATORVASTATIN 20 MG TAB PO SCH (08:49)
[2018-09-03] MEDS: LACTULOSE 20 GM/30 ML UDC PO SCH ×2 (08:49→20:41)
--- NOTE | 2018-09-03 08:52 | NUR ---
ADMINISTERED MEDS PER MD ORDER, PATIENT TOLERATED WELL. PATIENT IS SITTING UP ON A CHAIR AND LISTENING TO HER MUSIC. PATIENT IS ON 2LPM VIA NC AND SPO2 IS 92%. DENIES PAIN AND SOB. NO SIGNS OF DISTRESS NOTED. SAFETY MEASURES IN PLACE. TELE MONITOR ATTACHED. INSTRUCTED PATIENT TO USE THE CALL LIGHT FOR ANY ASSISTANCE AND PATIENT VERBALIZED OK.
[2018-09-03 09:10] LABS: BASOPHILS % (AUTO) 0.2 % (0.0-2.0); HEMATOCRIT 41.8 % (36-48); HEMOGLOBIN 13.8 g/dL (12.0-16.0); LYMPHOCYTES # (AUTO) 1.7 K/uL (2.5-16.5); LYMPHOCYTES % (AUTO) 17.8 % (20.5-51.1); MEAN CORPUSCULAR HEMOGLOBIN 29 pg (27-31); MEAN CORPUSCULAR HGB CONC 33 g/dL (33-37); MEAN CORPUSCULAR VOLUME 86.1 fL (80-94); MONOCYTES # (AUTO) 0.6 K/uL (0.8-1.0); MONOCYTES % (AUTO) 6.5 % (1.7-9.3); NEUTROPHILS % (AUTO) 75.5 % (42.2-75.2); PLATELET COUNT (AUTO) 211 K/uL (140-450); RED BLOOD CELL COUNT(AUTO) 4.85 MIL/uL (4.20-5.40); RED CELL DISTRIBUTION WIDTH 13.7 % (11.6-13.7); WHITE BLOOD COUNT (AUTO) 9.3 K/uL (4.8-10.8)
[2018-09-03 09:39] LABS: ANION GAP 9.8 (8-16); CARBON DIOXIDE 33.1 mmol/L (21-32); CREATININE 0.6 mg/dL (0.6-1.3); POTASSIUM 3.9 mmol/L (3.5-5.1)
[2018-09-03 09:52] LABS: PHOSPHORUS 4.1 mg/dL (2.5-4.9)
--- NOTE | 2018-09-03 11:26 | NUR ---
PATIENT IS TALKING ON HER PHONE. NO SIGNS OF DISTRESS NOTED. SAFETY MEASURES IN PLACE. TELE MONITOR ATTACHED.
[2018-09-03 12:00] VITALS: BP 112/77
--- NOTE | 2018-09-03 13:15 | NUR ---
PATIENT IS TALKING TO KE TEJEDA AT BEDSIDE. NO SIGNS OF DISTRESS NOTED. SAFETY MEASURES IN PLACE. TELE MONITOR ATTACHED.
--- NOTE | 2018-09-03 15:27 | NUR ---
PATIENT IS SITTING ON THE CHAIR AND DRINKING WATER. SHE IS TALKING TO HER SON AT BEDSIDE. DENIES SOB AND PAIN. NO SIGNS OF DISTRESS NOTED. SAFETY MEASURES IN PLACE. TELE MONITOR ATTACHED.
[2018-09-03 16:00] VITALS: BP 117/65
--- NOTE | 2018-09-03 17:28 | NUR ---
PATIENT IS TALKING TO SON AT BEDSIDE. DENIES PAIN AND SOB. SPO2 IS AT 94% WITH 2 LPM NC. NO SIGNS OF DISTRESS NOTED. SAFETY MEASURES IN PLACE. TELE MONITOR ATTACHED.
--- NOTE | 2018-09-03 18:25 | NUR ---
PATIENT IS SITTING ON THE CHAIR AND TALKING TO HER SON BY BEDSIDE. SHE IS ON 2LPM VIA NC AND SPO2 IS 94% AT THIS TIME. DENIES PAIN AND SOB. NO SIGNS OF DISTRESS NOTED. SAFETY MEASURES IN PLACE. TELE MONITOR ATTACHED.
--- NOTE | 2018-09-03 19:13 | NUR ---
ENDORSED PATIENT AT BEDSIDE TO PROJECT SYSTEMS ENGINEER NURSE FOR CONTINUITY OF CARE. PATIENT IS IN STABLE CONDITION. SAFETY MEASURES IN PLACE.
--- NOTE | 2018-09-03 19:14 | NUR ---
RECEIVED BEDSIDE REPORT FROM DAY SHIFT RNCRISTY. PATIENT IN STABLE CONDITION WITH FAMILY AT BEDSIDE. NO C/O PAIN OR SOB AT THIS TIME. PATIENT STABLE WITH NO SIGNS OF DISTRESS ON 2L O2 NC.
[2018-09-03 20:00] VITALS: BP 135/81
--- NOTE | 2018-09-03 20:47 | NUR ---
ADMINISTERED SCHEDULED MEDICATIONS. PATIENT TOLERATED WELL. PATIENT NOW SITTING AT BEDSIDE AND WILL CALL WHEN WANTING TO BE TRANSFERRED BACK TO BED.
--- NOTE | 2018-09-03 22:17 | NUR ---
PATIENT REQUESTING TO SLEEP, RT CAME TO PLACE PATIENT ON BIPAP. PATIENT HAS NO OTHER CONCERNS AT THIS TIME. SAFETY PRECAUTIONS IN PLACE. WILL CONTINUE TO MONITOR.
[2018-09-04] MEDS: ALBUTEROL SULFATE/IPRATROPIU 3 ML SOL IH SCH ×7 (00:03→23:20)
[2018-09-04 00:25] VITALS: BP 127/62
--- NOTE | 2018-09-04 00:33 | NUR ---
PATIENT SLEEPING VITALS STABLE, NO SIGNS OF DISTRESS ON BIPAP. SAFETY PRECAUTIONS IN PLACE. WILL CONTINUE TO MONITOR.
--- NOTE | 2018-09-04 02:04 | NUR ---
PATIENT SLEEPING, NO SIGNS OF DISTRESS ON BIPAP. SAFETY PRECAUTIONS IN PLACE.
[2018-09-04 04:00] VITALS: BP 118/68
--- NOTE | 2018-09-04 04:30 | NUR ---
VITALS STABLE, PATIENT SLEEPING WITH BIPAP ON, NO SIGNS OF DISTRESS. SAFETY PRECAUTIONS IN PLACE.
--- NOTE | 2018-09-04 06:15 | NUR ---
PATIENT AMBULATED TO BATHROOM WITH ASSISTANCE. ASSISTED PATIENT BACK TO BED. PATIENT NO LONGER WANTS TO WEAR BIPAP. PLACED NC ON PATIENT AT 2L O2,
[2018-09-04 06:27] LABS: BASOPHILS % (AUTO) 0.3 % (0.0-2.0); EOSINOPHILS # (AUTO) 0.1 K/uL (0-0.4); EOSINOPHILS % (AUTO) 1.1 % (0.0-4.0); HEMOGLOBIN 13.6 g/dL (12.0-16.0); LYMPHOCYTES # (AUTO) 2.6 K/uL (2.5-16.5); MEAN CORPUSCULAR HEMOGLOBIN 28 pg (27-31); MEAN CORPUSCULAR HGB CONC 33 g/dL (33-37); MEAN CORPUSCULAR VOLUME 86.3 fL (80-94); MONOCYTES # (AUTO) 0.6 K/uL (0.8-1.0); MONOCYTES % (AUTO) 8.3 % (1.7-9.3); NEUTROPHILS # (AUTO) 4.1 K/uL (1.8-7.7); NEUTROPHILS % (AUTO) 55.3 % (42.2-75.2); PLATELET COUNT (AUTO) 205 K/uL (140-450); RED BLOOD CELL COUNT(AUTO) 4.87 MIL/uL (4.20-5.40); RED CELL DISTRIBUTION WIDTH 13.5 % (11.6-13.7); WHITE BLOOD COUNT (AUTO) 7.4 K/uL (4.8-10.8)
[2018-09-04 06:32] LABS: CARBON DIOXIDE 36.5 mmol/L (21-32); CREATININE 0.6 mg/dL (0.6-1.3); POTASSIUM 3.5 mmol/L (3.5-5.1)
[2018-09-04 06:33] LABS: MAGNESIUM 2.1 mg/dL (1.8-2.4); PHOSPHORUS 5.6 mg/dL (2.5-4.9)
--- NOTE | 2018-09-04 07:05 | NUR ---
RECEIVED BEDSIDE REPORT, PT CURRENTLY SLEEPING IN BED WITH BREATHING EQUAL ON BOTH SIDES AND NO OBVIOUS SIGNS OF DISTRESS. CONTINUOUS O2 SATURATION MONITORING SHOWING 92-96% WITH 2L NC. PT LEFT AC IV SITE PATENT AND ASYMPTOMATIC SALINE FLUSHED AND LOCKED. PT DISPLAYS NO OBVIOUS SIGNS OF DISCOMFORT OR PAIN SUCH FACIAL GRIMACING. ALL SAFETY MEASURES IN CHECK AND CALL LIGHT WITHIN REACH.
[2018-09-04 08:00] VITALS: BP 132/83
[2018-09-04] MEDS: LACTOBACILLUS RHAMNOSUS GG 1 EACH CAP PO SCH (08:29)
[2018-09-04] MEDS: LACTULOSE 20 GM/30 ML UDC PO SCH ×2 (08:29→20:45)
[2018-09-04] MEDS: ASPIRIN 81 MG TAB.CHEW PO SCH (08:30)
[2018-09-04] MEDS: ATORVASTATIN 20 MG TAB PO SCH (08:30)
[2018-09-04] MEDS: PANTOPRAZOLE 40 MG TABEC PO SCH (08:30)
--- NOTE | 2018-09-04 08:40 | NUR ---
ADMINISTERED MEDICATIONS, PT TOLERATED WELL. REVIEWED INDICATION AND SIDE EFFECTS. PT HAS NO OBVIOUS SIGNS OF DISTRESS, BREATHING SYMMETRICAL AND UNLABORED.
[2018-09-04 12:00] VITALS: BP 123/79
--- NOTE | 2018-09-04 12:40 | NUR ---
PT IS SITTING IN CHAIR BY BEDSIDE. NOTIFIED DR HARTLEY THAT PATIENT IS CURRENTLY COMPLAINING OF PERSISTENT DIZZINESS. DR. HARTLEY INFORMED ME SHE WILL FOLLOW UP WITH ORDERS TO ADDRESS THE DIZZINESS. PT IS FREE OF ANY OTHER SIGNS OF DISTRESS AT THIS TIME.
[2018-09-04] MEDS ORDERED: MECLIZINE 25 MG TAB PO PRN (12:45)
--- NOTE | 2018-09-04 14:29 | NUR ---
ADMINISTERED PRN MEDICATION ANTIVERT FOR PT COMPLAINING OF DIZZINESS. PT IF FREE OF OBVIOUS SIGNS OF DISTRESS AND HAS NO OTHER COMPLAINTS AT THIS TIME.
--- NOTE | 2018-09-04 15:35 | NUR ---
PT RETURNED FROM CT SCAN TO FLOOR.
[2018-09-04 15:54] VITALS: BP 124/76
[2018-09-04] MEDS: CALCIUM ACETATE 667 MG TAB PO SCH (16:13)
--- NOTE | 2018-09-04 16:15 | NUR ---
ADMINISTERED MEDICATION. PT IS LAYING IN BED WITH FAMILY PRESENT AT BEDSIDE WITH NO OBVIOUS SIGNS OF DISTRESS. REVIEWED INDICATION FOR MEDICATION WITH PT AND FAMILY.
--- NOTE | 2018-09-04 18:10 | NUR ---
PT RESTING IN BED DENYING ANY COMPLAINTS OR REQUESTS AND HAS NO OBVIOUS SIGNS OF DISTRESS WITH BREATHING SYMMETRICAL AT THIS TIME.
--- NOTE | 2018-09-04 19:15 | NUR ---
GAVE BEDSIDE REPORT DISCUSSED POC AND ENDORSED TO NIGHT NURSE. PT IS STABLE WITH NO OBVIOUS SIGNS OF DISTRESS.
--- NOTE | 2018-09-04 19:15 | NUR ---
RECEIVED REPORT FORM ANU RN AND JONNY RN DAYSHIFT NURSES AT BEDSIDE FOR CONTINUITY OF CARE, PT IN STABLE CONDITION.
--- NOTE | 2018-09-04 19:30 | NUR ---
RECEIVING NEB TREATMENT AT BEDSIDE.
[2018-09-04 20:00] VITALS: BP 111/68
--- NOTE | 2018-09-04 20:00 | NUR ---
PT SITTING UP IN CHAIR, NO SOB NOTED PT LUNG SOUNDS CLEAR BUT BREATH SOUNDS DIMINISHED, SHE IS ON 2 LITERS VIA N/C SUPPLEMENTAL 02. PT HAS NO C/O VOICED AT THIS TIME AND FAMILY AT BEDSIDE. V/S FOLLOWS T 97.9 P 81 R 18 B/P 111/68 02 92% AT THIS TIME.
--- NOTE | 2018-09-04 21:00 | NUR ---
PT GIVEN DUE MEDS OF LACTULOSE AND HEPARIN SQ SHOT. PT IN BD WITH N/C AT 2 LITERS , NO SOB NOTED NO C/O VOICED. V/S FOLLOWS T 97.7 P 95 R 18 B/P 107/59 02 93%.
--- NOTE | 2018-09-04 23:00 | NUR ---
NEB TREATMENT AT BEDSIDE.
--- NOTE | 2018-09-04 23:28 | NUR ---
PLACED PT ON BIPAP. IPAP 16 EPAP 8 RR20 AND FIO2 30%.INLINE HHNTX GIVEN. BS ARE CLEAR NO SOB NOTED
[2018-09-05] VITALS: BP 111/66
--- NOTE | 2018-09-05 | NUR ---
PT IN BED BLANKET BROUGHT REQUESTED. PT IN BED WITH BIPAP MASK. V/S FOLLOWS T 97.7 P 81 R 18 B/P 111/68 02 98% WITH BIPAP.
[2018-09-05] MEDS: ALBUTEROL SULFATE/IPRATROPIU 3 ML SOL IH SCH ×6 (03:08→22:24)
[2018-09-05 04:00] VITALS: BP 105/59
--- NOTE | 2018-09-05 07:25 | NUR ---
REPORT GIVEN TO SARY SAMANO DAYSHIFT NURSE AT BEDSIDE FOR CONTINUITY OF CARE, PT IN STABLE CONDITION.
--- NOTE | 2018-09-05 07:26 | NUR ---
SBAR REPORT RECEIVED FROM NIGHT RN GODWIN AT PT BEDSIDE. PATIENT SEEN AWAKE AND ALERT, TAJIK SPEAKING. FOLLOWS COMMANDS. ON 5L NC, NO ACUTE DISTRESS NOTED. PATIENT DENIES PAIN. UPDATED PATIENT ON CURRENT PLAN OF CARE, IN AGREEMENT. ALL NEEDS MET.
[2018-09-05 07:33] LABS: CARBON DIOXIDE 37.8 mmol/L (21-32); CREATININE 0.6 mg/dL (0.6-1.3); POTASSIUM 3.8 mmol/L (3.5-5.1)
[2018-09-05 07:34] LABS: BASOPHILS % (AUTO) 0.4 % (0.0-2.0); EOSINOPHILS # (AUTO) 0.1 K/uL (0-0.4); EOSINOPHILS % (AUTO) 1.9 % (0.0-4.0); HEMATOCRIT 43.4 % (36-48); HEMOGLOBIN 14.2 g/dL (12.0-16.0); LYMPHOCYTES # (AUTO) 2.1 K/uL (2.5-16.5); LYMPHOCYTES % (AUTO) 29.8 % (20.5-51.1); MEAN CORPUSCULAR HEMOGLOBIN 28 pg (27-31); MEAN CORPUSCULAR HGB CONC 33 g/dL (33-37); MEAN CORPUSCULAR VOLUME 86.1 fL (80-94); MONOCYTES # (AUTO) 0.5 K/uL (0.8-1.0); MONOCYTES % (AUTO) 6.9 % (1.7-9.3); NEUTROPHILS # (AUTO) 4.4 K/uL (1.8-7.7); PLATELET COUNT (AUTO) 198 K/uL (140-450); RED BLOOD CELL COUNT(AUTO) 5.04 MIL/uL (4.20-5.40); RED CELL DISTRIBUTION WIDTH 13.8 % (11.6-13.7); WHITE BLOOD COUNT (AUTO) 7.2 K/uL (4.8-10.8)
--- NOTE | 2018-09-05 07:43 | NUR ---
CAME INTO PTS ROOM, PT WAS ON 5L N.C SATURATION TON AT 96%. PLACED PT ON 4L., PT BIBI WELL WITH SATURATION AT 96% STAYING STEADY. WILL CONT TO MONITOR PT
[2018-09-05 07:44] LABS: PHOSPHORUS 5.2 mg/dL (2.5-4.9)
[2018-09-05 08:00] VITALS: BP 105/51
[2018-09-05] MEDS: LACTULOSE 20 GM/30 ML UDC PO SCH ×2 (08:10→21:37)
[2018-09-05] MEDS: CALCIUM ACETATE 667 MG TAB PO SCH ×2 (08:11→16:26)
[2018-09-05] MEDS: ASPIRIN 81 MG TAB.CHEW PO SCH (08:11)
[2018-09-05] MEDS: LACTOBACILLUS RHAMNOSUS GG 1 EACH CAP PO SCH (08:12)
[2018-09-05] MEDS: ATORVASTATIN 20 MG TAB PO SCH (08:12)
[2018-09-05] MEDS: PANTOPRAZOLE 40 MG TABEC PO SCH (08:12)
--- NOTE | 2018-09-05 10:10 | NUR ---
PLACED PT ON ROOM AIR. PTS SATURATION WERE BETWEEN 91-93%. PT DIDNT SHOW ANY SOB OR INCREASED WOB. PT TOLERATING ROOM AIR WELL. PT SAID SHE DID NOT FEEL ANY DISTRESS . PT WAS STEADY WITH HER SATURATION. WILL CONTINUE TO MONITOR
--- NOTE | 2018-09-05 11:57 | NUR ---
WENT IN TO PTS ROOM TO CHECK ON HER . PT WAS SATURATING AT 84-86%. GAVE PT BREATHING TX AND LEFT THE PT ON 2L N.C. PT BEGAN TO SATURATE AT 92-94%. WILL CONTINUE TO MONITOR
[2018-09-05 12:00] VITALS: BP 113/75
--- NOTE | 2018-09-05 12:30 | NUR ---
PATIENT ON ROOM AIR. NO ACUTE RESPIRATORY DISTRESS NOTED. AMBULATORY WITH STEADY GAIT. DENIES DISCOMFORT. ALL NEEDS MET.
--- NOTE | 2018-09-05 15:20 | NUR ---
PATIENT SITTING UP IN CHAIR. DENIES DISCOMFORT. NO ACUTE DISTRESS NOTED. CONTINUED ON ROOM AIR.
[2018-09-05 16:00] VITALS: BP 111/61
--- NOTE | 2018-09-05 19:25 | NUR ---
SBAR REPORT GIVEN TO NIGHT RN AT PT BEDSIDE. NO ACUTE DISTRESS NOTED. CONTINUED ON ROOM AIR.
--- NOTE | 2018-09-05 19:26 | NUR ---
REPORT GIVEN BY DAY SHIFT NURSE SARY-RN AT BEDSIDE. PT RESTING IN BED, AOX4-POLISH SPEAKING, ON ROOM AIR WITH LEFT AC #20G-SL. DISCUSSED PLAN OF CARE AND PT VERBALIZED UNDERSTANDING. NO S/S OF RESPIRATORY DISTRESS OR DISCOMFORT NOTED AT THIS TIME. BED IN LOWEST POSITION, BED BREAKS ON WITH FALL PRECAUTIONS IN PLACE. MORBIDLY OBESE IN BARIATRIC BED. BEDSIDE TABLE AND CALL LIGHT ARE WITHIN REACH. WILL CONTINUE TO MONITOR.
[2018-09-05 20:00] VITALS: BP 118/67
--- NOTE | 2018-09-05 20:00 | NUR ---
VITAL SIGNS TAKEN AND TOLERATED WELL. NO S/S OF RESPIRATORY DISTRESS OR DISCOMFORT NOTED AT THIS TIME. WILL CONTINUE TO MONITOR.
--- NOTE | 2018-09-05 21:42 | NUR ---
SCHEDULED MEDICATIONS GIVEN AND TOLERATED WELL. NO S/S OF RESPIRATORY DISTRESS OR DISCOMFORT NOTED AT THIS TIME. WILL CONTINUE TO MONITOR.
[2018-09-06] VITALS: BP 106/62
--- NOTE | 2018-09-06 | NUR ---
VITAL SIGNS TAKEN AND TOLERATED WELL. NO S/S OF RESPIRATORY DISTRESS OR DISCOMFORT NOTED AT THIS TIME. WILL CONTINUE TO MONITOR.
--- NOTE | 2018-09-06 02:00 | NUR ---
PT SLEEPING IN BED ON BIPAP. NO S/S OF RESPIRATORY DISTRESS OR DISCOMFORT NOTED AT THIS TIME. WILL CONTINUE TO MONITOR.
[2018-09-06] MEDS: ALBUTEROL SULFATE/IPRATROPIU 3 ML SOL IH SCH ×4 (03:02→15:07)
[2018-09-06 04:00] VITALS: BP 123/66
--- NOTE | 2018-09-06 04:00 | NUR ---
VITAL SIGNS TAKEN AND TOLERATED WELL. NO S/S OF RESPIRATORY DISTRESS OR DISCOMFORT NOTED AT THIS TIME. WILL CONTINUE TO MONITOR.
--- NOTE | 2018-09-06 06:00 | NUR ---
PT SLEEPING IN BED. NO S/S OF RESPIRATORY DISTRESS OR DISCOMFORT NOTED AT THIS TIME. WILL CONTINUE TO MONITOR.
[2018-09-06 06:01] LABS: BASOPHILS # (AUTO) 0.1 K/uL (0.00-0.22); BASOPHILS % (AUTO) 0.7 % (0.0-2.0); EOSINOPHILS # (AUTO) 0.2 K/uL (0-0.4); EOSINOPHILS % (AUTO) 2.4 % (0.0-4.0); HEMATOCRIT 41.8 % (36-48); HEMOGLOBIN 14.1 g/dL (12.0-16.0); LYMPHOCYTES # (AUTO) 2.1 K/uL (2.5-16.5); LYMPHOCYTES % (AUTO) 25.1 % (20.5-51.1); MEAN CORPUSCULAR HEMOGLOBIN 29 pg (27-31); MEAN CORPUSCULAR HGB CONC 34 g/dL (33-37); MEAN CORPUSCULAR VOLUME 85.2 fL (80-94); MONOCYTES # (AUTO) 0.5 K/uL (0.8-1.0); MONOCYTES % (AUTO) 6.4 % (1.7-9.3); NEUTROPHILS # (AUTO) 5.6 K/uL (1.8-7.7); NEUTROPHILS % (AUTO) 65.4 % (42.2-75.2); PLATELET COUNT (AUTO) 254 K/uL (140-450); RED CELL DISTRIBUTION WIDTH 13.6 % (11.6-13.7); WHITE BLOOD COUNT (AUTO) 8.5 K/uL (4.8-10.8)
[2018-09-06 06:30] LABS: ANION GAP 9.9 (8-16); CARBON DIOXIDE 35.6 mmol/L (21-32); CREATININE 0.6 mg/dL (0.6-1.3); POTASSIUM 4.5 mmol/L (3.5-5.1)
[2018-09-06 06:41] LABS: MAGNESIUM 1.9 mg/dL (1.8-2.4); PHOSPHORUS 4.7 mg/dL (2.5-4.9)
--- NOTE | 2018-09-06 07:29 | NUR ---
ENDORSED PT CARE TO DAY SHIFT NURSE SITAL -RN FOR CONTINUITY OF CARE.
[2018-09-06 08:00] VITALS: BP 125/84
[2018-09-06] MEDS: LACTOBACILLUS RHAMNOSUS GG 1 EACH CAP PO SCH (08:30)
[2018-09-06] MEDS: LACTULOSE 20 GM/30 ML UDC PO SCH (08:30)
[2018-09-06] MEDS: PANTOPRAZOLE 40 MG TABEC PO SCH (08:31)
[2018-09-06] MEDS: CALCIUM ACETATE 667 MG TAB PO SCH ×2 (08:31→17:00)
--- NOTE | 2018-09-06 08:39 | NUR ---
ADMINISTERED MEDS TO PT ORDERED. PT TOLERATED WELL. NO DISTRESS NOTED. CALL LIGHT WITHIN REACH . WILL CONTINUE TO MONITOR PT.
[2018-09-06] MEDS ORDERED: NACL 0.45% 500 ML IV SCH (10:20)
--- NOTE | 2018-09-06 11:13 | NUR ---
CHECKED ON PT. GETTING BREATHING TREATMENT. NO DISTRESS NOTED. WILL CONTINUE TO MONITOR PT.
[2018-09-06 12:00] VITALS: BP 109/47
--- NOTE | 2018-09-06 12:00 | NUR ---
PT LYING ON HER BED. MD AT THE BEDSIDE, TALKING TO PT ABOUT THE DISCHARGE PLAN. INFORMED PT TO DRINK MORE WATER HER NA IS HIGH. PT VERBALIZED UNDERSTANDING. WILL CONTINUE TO MONITOR PT.
[2018-09-06 16:00] VITALS: BP 143/82
--- NOTE | 2018-09-06 16:15 | NUR ---
CHECKED ON THE PT. INFORMED HER THAT PT IS BEING DISCHARGED TODAY. PT ASKING IF C-PAP MACHINE HAS BEEN ARRANGED AT HOME. INFORMED HER THAT INDUSTRIAL TWISTING MACHINE OPERATOR SI WORKING ON IT. PT WILL BE PROVIDED DETAIL INFORMATION REGARDING THE C-PAP MACHINE. PER CHARGE NURSE, CHANDLER MOSES TALKED TO THE PT, INFORMED HER THAT SHE WILL HAVE THE SLEEP STUDYING SESSION AT HER HOME . WAITING ON INDUSTRIAL TWISTING MACHINE OPERATOR TO MAKE FOR THE NECESSARY ARRANGEMENT.
[2018-09-06 16:53] LABS: ANION GAP 7.4 (8-16); CARBON DIOXIDE 35.9 mmol/L (21-32); CREATININE 0.7 mg/dL (0.6-1.3); POTASSIUM 4.3 mmol/L (3.5-5.1)
--- NOTE | 2018-09-06 17:14 | NUR ---
PER CHALINO MOSES, PT OK TO DC HOME, AURELIA WILL CALL PATIENT TOMORROW WITH INFORMATION ON SLEEP STUDY. PT NOTIFIED AND AGREES WITH PLAN, PRIMARY CARE NURSE DANIELLE MADE AWARE.
--- NOTE | 2018-09-06 18:05 | NUR ---
PT DISCHARGED. SIGNED ALL THE PAPER . INFORMED HER THAT [place] AURELIA WILL FOLLOW UP WITH HER AT HOME TOMORROW. PT PHONE NUMBER [phone]. PT VERBALIZED UNDERSTANDING OF TEACHING . TELE MONITOR TAKEN , DC IV ACCES. PT WAITING FOR THE RIDE, STATES FAMILY WILL PICK HER UP.
--- NOTE | 2018-09-07 14:37 | NUR ---
Slag Motor Operator Note: Late entry for 09/06/18: I was instructed by Dr. Sneed to schedule an appointment for patient at a local low cost clinic and request for clinic to refer patient to a sleep study center. I explained to patient at this time has [employer] restricted coverage and this type of insurance does not cover medical appointment fees. I told I was going to call several sleep study centers and obtain jacques pacheco quotes for sleep study. I called and spoke with Brianne at [facility] , she stated it is $600 for sleep study, she told me if patient needs an additional sleep study patient will have to pay an additional $600. I called and spoke with Niecy at [facility] , she stated it is $795 for sleep study. I met with patient at bedside. She speaks Somali. I asked her if she recalls where her sleep study was done. She told me she does not recall name of sleep study center but stated it is between [address] [place] [address] and [facility]. I looked up sleep study centers online near those two main streets, I found [facility] online, [address] [place] [address]. I called and spoke with Aruna from [facility], she was able to confirm patient had a sleep study completed at their center in 2013. Aruna told me at that time (2013) patient had [facility] (HMO) coverage. Per Aruna, it is $225 for sleep study to be done at patient�s home, I informed patient of this. She stated she is able to pay $225 for sleep study at home, I informed of this. Addendum: 09/07/18 at 1507 by Felisha Martines SS Late entry for 09/06/18: Patient does not have a pcp at this time. She agreed to having an appointment scheduled on her behalf at a local low cost clinic. I called and spoke with Darryl at [facility] and made appointment on 09/14/18 at 2pm. I provided patient with appointment information. I faxed referral to [facility]. I called and spoke with Aruna at [facility], confirmed referral was received. Per Aruna, they will contact patient to schedule sleep study at home. She stated it can be done same day. I called and spoke with patient, I advised her to contact [facility] to schedule appointment for sleep study and provided her with phone number of [facility]. Per patient, she will call today.
[2018-11-17] MEDS ORDERED: BUDE180P IH (10:12)
[2018-11-17] MEDS ORDERED: IBUP-1801 PO (10:19)
== END 2018-09-06 18:30 | disposition home or self-care (01) | DRG 133 ==
LOC: MED 06:05 → MTU 07:51
PROVIDERS: ADMIT General Practice; ATTEND General Practice
PROC: 5A09357 Assistance with Respiratory Ventilation, Less than 24 Consecutive Hours, Continuous Positive Airway Pressure (ICD-10-PCS; principal; 2018-08-31)
PROC: 5A09357 Assistance with Respiratory Ventilation, Less than 24 Consecutive Hours, Continuous Positive Airway Pressure (ICD-10-PCS; 2018-09-03)
DX: J96.21 Acute and chronic respiratory failure with hypoxia (principal); N17.0 Acute kidney failure with tubular necrosis; E44.0 Moderate protein-calorie malnutrition; E72.20 Disorder of urea cycle metabolism, unspecified; E87.0 Hyperosmolality and hypernatremia; E83.39 Other disorders of phosphorus metabolism; K86.1 Other chronic pancreatitis; E66.2 Morbid (severe) obesity with alveolar hypoventilation; M94.0 Chondrocostal junction syndrome [Tietze]; J96.22 Acute and chronic respiratory failure with hypercapnia; Z68.45 Body mass index [BMI] 70 or greater, adult; J45.909 Unspecified asthma, uncomplicated; J44.9 Chronic obstructive pulmonary disease, unspecified; I10 Essential (primary) hypertension; F17.210 Nicotine dependence, cigarettes, uncomplicated; F12.10 Cannabis abuse, uncomplicated; R13.10 Dysphagia, unspecified; G90.9 Disorder of the autonomic nervous system, unspecified; K74.60 Unspecified cirrhosis of liver; K80.20 Calculus of gallbladder without cholecystitis without obstruction; E86.0 Dehydration; E87.2 Acidosis; Z82.49 Family history of ischemic heart disease and other diseases of the circulatory system; Z91.19 Patient's noncompliance with other medical treatment and regimen
CPT/HCPCS: 36415; 36600; 70450; 71045; 76705; 80048; 80053; 80305; 81001; 82140; 82150; 82803; 82948; 83036; 83605; 83690; 83735; 83880; 84100; 84436; 84443; 84479; 84484; 85025; 85610; 85730; 86704; 86706; 86708; 86709; 86803; 87040; 87081; 87086; 87340; 93005; 94640; 94660; 96361; 96365; 99285; J0696; J1644; J2543; J2920; J2930; J7030; J7620; J8597; Q0092

== ENCOUNTER 2018-10-09 07:30 | Emergency (ER) | payer MEDICAID ==
[~2018-10-09] VITALS: Ht 165.1 cm; Wt 146.1 kg
[2018-10-09 07:44] VITALS: BP 106/56
--- NOTE | 2018-10-09 07:44 | NUR ---
Patient transferred to bed 4 via wheelchair by tech. RN evaluating patient at bedside.
--- NOTE | 2018-10-09 08:04 | NUR ---
Dr. York evaluating patient at bedside.
--- NOTE | 2018-10-09 08:09 | NUR ---
BIB FAMILY C/O CHEST PAIN AND SOB FOR 15 DAYS, H/A, TWO BULGES WITH REDNESS & SWELLING NOTICED UNDER RIGHT ARM, PAIN ON HER RT ARMPIT FOR 6 DAYS. REPORTS NAUSEA AND VOMITING ONE TIME TIHIS MORNING. DENIES DIARRHEA; SKIN IS PINK/WARM/DRY, BUT SWELLING EYE LIDS NOTICED +1 WITH NON-PITTING; AAOX3; TACHYCARDIA NOTICED ON MONITOR AND EKG; PT DENIES ANY FEVER AND COUGH AT THIS TIME; PATIENT STATES HEADACHE IS AT 10/10, AND CHEST PAIN 8/10 AT THIS TIME; VSS; PATIENT POSITIONED FOR COMFORT; HOB ELEVATED; BEDRAILS UP X2; BED DOWN. ER MD MADE AWARE OF PT STATUS. PT IS ON MONITOR AND 5L OXYGEN. OXYGEN SATS IS 96%. FAMILY IS AT BEDSIDE.
[2018-10-09] MEDS ORDERED: MORPHINE SULFATE 4 MG/ML SYR IVP ONE (08:10)
[2018-10-09] MEDS ORDERED: diphenhydrAMINE 50 MG/ML VIAL IVP ONE (08:10)
[2018-10-09] MEDS ORDERED: NACL 0.9% 1,000 ML IV ONE ×2 (08:10→10:20)
[2018-10-09] MEDS ORDERED: cefTRIAXone 1,000 MG VIAL ONE (08:28)
--- NOTE | 2018-10-09 08:49 | NUR ---
Pt's T is 100.7F. MADE AWARE.
[2018-10-09] MEDS ORDERED: ACETAMINOPHEN EXTRA STRENGTH 500 MG TAB PO ONE (08:50)
[2018-10-09 11:19] VITALS: BP 115/67
--- NOTE | 2018-10-09 11:20 | NUR ---
Patient discharged with v/s stable. Written and verbal after care instructions given and explained. Patient alert, oriented and verbalized understanding of instructions. Wheel Chair Assisted with to car. All questions addressed prior to discharge. ID band removed. Patient advised to follow up with PMD. Rx of Prednisone, Bactrim, Keflex, Motrin, and [place] given. Patient educated on indication of medication including possible reaction and side effects. Opportunity to ask questions provided and answered.
[2018-11-17] MEDS ORDERED: BUDE180P IH (10:12)
[2018-11-17] MEDS ORDERED: IBUP-1801 PO (10:19)
== END 2018-10-09 11:20 | disposition home or self-care (01) ==
LOC: MED 07:30
DX: T78.40XA Allergy, unspecified, initial encounter (principal); L02.411 Cutaneous abscess of right axilla; L03.111 Cellulitis of right axilla; R07.9 Chest pain, unspecified; J44.9 Chronic obstructive pulmonary disease, unspecified; F17.200 Nicotine dependence, unspecified, uncomplicated; Z86.79 Personal history of other diseases of the circulatory system; Z98.890 Other specified postprocedural states; X58.XXXA Exposure to other specified factors, initial encounter
CPT/HCPCS: 81002; 81025; 93005; 96365; 96375; 99283; J0696; J1200; J2270; J7030; J7060

== ENCOUNTER 2018-12-23 21:30 | Inpatient (IN) | payer MEDICAID ==
[~2018-12-23] VITALS: Ht 152.4 cm; Wt 142.9 kg
[~2018-12-23 21:30] MED LIST: BUDE180P IH; IBUP-1801 PO
[2018-12-23 21:38] VITALS: BP 111/55
--- NOTE | 2018-12-23 21:47 | NUR ---
PT WHEELCHAIRED TO BED #2
--- NOTE | 2018-12-23 21:59 | NUR ---
43 Y/O FEMALE PRESENTS TO ED C/O OF GENERALIZED WEAKNESS. PT STATES SHE HAS BEEN UNABLE TO WAKE UP FROM HER SLEEP. HAS BEEN SLEEPING FOR THE PAST 20 HRS A DAY. PT DENIES TAKING ANY MEDICATIONS OTHER THAN HER DIURETICS. PT C/O OF DIFFICULTY BREATHING, PLACED ON 2 L OXYGEN. O2 SAT AT 98% VIA NC. PT VSS. ERMMookie AWARE. WILL CONTINUE TO MONITOR.
[2018-12-23 22:33] LABS: BASOPHILS % (AUTO) 0.5 % (0.0-2.0); EOSINOPHILS # (AUTO) 0.1 K/uL (0-0.4); EOSINOPHILS % (AUTO) 0.9 % (0.0-4.0); HEMATOCRIT 44.9 % (36-48); HEMOGLOBIN 13.2 g/dL (12.0-16.0); LYMPHOCYTES # (AUTO) 1.6 K/uL (2.5-16.5); LYMPHOCYTES % (AUTO) 20.9 % (20.5-51.1); MEAN CORPUSCULAR HEMOGLOBIN 24 pg (27-31); MEAN CORPUSCULAR HGB CONC 29 g/dL (33-37); MONOCYTES # (AUTO) 0.7 K/uL (0.8-1.0); MONOCYTES % (AUTO) 8.7 % (1.7-9.3); NEUTROPHILS # (AUTO) 5.4 K/uL (1.8-7.7); PLATELET COUNT (AUTO) 182 K/uL (140-450); RED BLOOD CELL COUNT(AUTO) 5.61 MIL/uL (4.20-5.40); RED CELL DISTRIBUTION WIDTH 19.7 % (11.6-13.7); WHITE BLOOD COUNT (AUTO) 7.9 K/uL (4.8-10.8)
[2018-12-23 22:52] LABS: ALBUMIN 3.2 g/dL (3.4-5.0); ANION GAP 2.3 (8-16); CREATININE 0.6 mg/dL (0.6-1.3); POTASSIUM 3.8 mmol/L (3.5-5.1); TOTAL BILIRUBIN 0.4 mg/dL (0.0-1.0)
[2018-12-23 22:54] LABS: CARBON DIOXIDE 44.5 mmol/L (21-32)
--- NOTE | 2018-12-23 23:20 | NUR ---
PT LAYING ON BED. SON IS AT BEDSIDE. DENIES ANY DIFFICULTY BREATHING. CURRENTLY ON 4L O2 VIA NC AT 95%. PT VSS. ERMD AWARE. WILL CONTINUE TO MONITOR.
[2018-12-23 23:30] LABS: FREE T4 (FREE THYROXINE) 1.19 ng/dL (0.76-1.46); THYROID STIMULATING HORMONE 2.47 uIU/mL (0.34-3.74)
[2018-12-23 23:34] LABS: APPEARANCE,URINE CLEAR (CLEAR); BILIRUBIN,URINE NEGATIVE (NEGATIVE); BLOOD, URINE NEGATIVE (NEGATIVE); COLOR,URINE YELLOW (YELLOW); LEUKOCYTE ESTERASE ,URINE NEGATIVE (NEGATIVE); NITRITE, URINE NEGATIVE (NEGATIVE); UGLUCOSE NEGATIVE (NEGATIVE)
--- NOTE | 2018-12-23 23:41 | NUR ---
COVERING PRIMARY RN FOR LUNCH RELIEF.
[2018-12-24] VITALS (17 sets, daily range): BP systolic 104–150; BP diastolic 51–102
--- NOTE | 2018-12-24 00:10 | NUR ---
REPORT TO SELWYN TIMMONS. NO CHANGE IN PT CONDITION.
[2018-12-24] MEDS ORDERED: KETOROLAC 30 MG/ML VIAL IVP ONE (00:35)
[2018-12-24] MEDS ORDERED: NACL 0.9% 1,000 ML IV SCH (00:46)
[2018-12-24] MEDS ORDERED: ACETAMINOPHEN 325 MG TAB PO PRN ×2 (00:50→08:55)
[2018-12-24] MEDS ORDERED: MORPHINE SULFATE 2 MG/ML SYR IVP PRN (00:50)
[2018-12-24] MEDS ORDERED: DOCUSATE SODIUM 100 MG GELCAP PO PRN (00:50)
[2018-12-24] MEDS ORDERED: ONDANSETRON 4 MG/2 ML VIAL IM/IVP PRN (00:50)
[2018-12-24] MEDS ORDERED: FUROSEMIDE 40 MG/4 ML VIAL IVP SCH ×2 (01:45→11:25)
--- NOTE | 2018-12-24 01:45 | NUR ---
PT ADMITTED TO [facility] RM 111B. REPORT GIVEN TO GODWIN SAMANO. PT STABLE AT TRANSFER. PT CARE TRANSFERRED TO RECEIVING RN.
--- NOTE | 2018-12-24 01:45 | NUR ---
PT ARRIVED VIA GURNEY TO ROOM 111, PT AMBULATED WITH UNSTEADY GAIT TO BED B. REPORT RECEIVED FROM DIRECTOR OF PEOPLE NURSE AT BEDSIDE FOR CONTINUITY OF CARE, PT IN STABLE CONDITION. PT STATING AT 80 ON ROOM AIR AND 90% WITH 4 LITERS VIA N/C. OTHER V/S FOLLOWS T 97.7 P 86 R 18 B/P 111/63 02 99% WITH C PAP ON. PT IS AWAKE BUT LETHARGIC. PT SKIN INTACT WITH IV SITE 22G ON R HAND. PT PLACED ON FALLS RISK DUE TO UNSTEADY GAIT.
[2018-12-24 02:07] LABS: PROTHROMBIN TIME 9.7 secs (10.8-13.4)
[2018-12-24 02:09] LABS: BARBITURATE, URINE NEG. ng/ml (NEG <=200); BENZODIAZEPINE, URINE NEG. ng/mL (NEG <=200); CANNABINOID, URINE NEG. ng/mL (NEG <=50); COCAINE, URINE NEG. ng/mL (NEG <=300); OPIATE, URINE NEG. ng/mL (NEG <=2000); PHENCYCLIDINE SCREEN,URINE NEG. ng/mL (NEG <=25)
[2018-12-24 02:17] LABS: CHOL/HDL RATIO 3.8 (1-4.5); MAGNESIUM 1.7 mg/dL (1.8-2.4); THYROID STIMULATING HORMONE 2.38 uIU/mL (0.34-3.74)
[2018-12-24] MEDS: methylPREDNISolone SS 40 MG/ML VIAL IVP SCH ×3 (02:19→17:37)
--- NOTE | 2018-12-24 02:22 | NUR ---
PATIENT PLACED ON BIPAP IPAP12 EPAP 6 RR12 FIO2 100%
[2018-12-24] MEDS: KETOROLAC 30 MG/ML VIAL IVP PRN ×2 (02:31→11:30)
--- NOTE | 2018-12-24 02:35 | NUR ---
PT GIVEN TORADOL FOR MILD HEADACHE, ALL FALLS PRECAUTIONS IN PLACE AND BEDSIDE COMMODE PLACED AT BEDSIDE FOR SAFETY.
[2018-12-24] MEDS ORDERED: MAG SULF 2000 MG/WATER PREMIX 50 ML IV SCH (02:45)
--- NOTE | 2018-12-24 03:27 | NUR ---
LOWERED FIO2 TO 80% SATS 98%. WILL CONTINUE TO TITRATE FIO2
--- NOTE | 2018-12-24 03:30 | NUR ---
PT GIVEN MAG RIDER FOR MAG LEVEL OF 1.7.
--- NOTE | 2018-12-24 05:24 | NUR ---
made changes on bipap post abg results. ipap 16 epap 6 rr 20 fio2 50%
[2018-12-24] MEDS: ALBUTEROL SULFATE/IPRATROPIU 3 ML SOL IH PRN (05:35)
[2018-12-24] MEDS ORDERED: AZITHROMYCIN 500 MG in DEXTROSE 5% 250 ML IV SCH (06:30)
[2018-12-24] MEDS ORDERED: cefTRIAXone 1,000 MG VIAL ONE (06:51)
[2018-12-24] MEDS: BUDESONIDE 0.5 MG/2 ML NEBU INH SCH ×2 (07:09→19:29)
--- NOTE | 2018-12-24 07:54 | NUR ---
PATIENT TRANSFERRED FROM [facility] TO ICU WITHOUT INCIDENT.
--- NOTE | 2018-12-24 07:55 | NUR ---
RECEIVED PATIENT TRANSFERRED FROM ROOM 111B, REPORT OBTAINED AT BEDSIDE, PT IS AAOX4, ABLE TO FOLLOW COMMANDS AND MAKE NEEDS KNOWN, VSS, DENIES PAIN, NO S/S OF DISTRESS, RHONCHI LUNG SOUNDS BRANDYN, ON BIPAP AT FIO2 100%, O2 SAT 91%, RT AT BEDSIDE, DENIES CHEST PAIN, SR ON TRANSIT MAN, LARGE ABDOMEN WITH ACTIVE BOWEL SOUNDS, CONTINENT WITH B&B'S, ABLE TO MOVE ALL EXTREMITIES, SKIN IS INTACT, WARM AND DRY TO TOUCH, IV TO RIGHT HAND 22GA, PATENT, RUNNING NS AT 60ML/HR, EXPLAINED PATIENT TO ICU ROOM SETTING AND PLAN OF CARE, PATIENT VERBALIZED UNDERSTANDING, HOB ELEVATED TO 45 DEGREES, SAFETY MEASURE IN PLACE, CALL LIGHT WITHIN REACH, WILL CONTINUE TO MONITOR.
[2018-12-24 08:23] LABS: BASOPHILS % (AUTO) 0.3 % (0.0-2.0); EOSINOPHILS % (AUTO) 0.2 % (0.0-4.0); HEMATOCRIT 45.4 % (36-48); HEMOGLOBIN 13.7 g/dL (12.0-16.0); LYMPHOCYTES # (AUTO) 0.7 K/uL (2.5-16.5); LYMPHOCYTES % (AUTO) 7.9 % (20.5-51.1); MEAN CORPUSCULAR HEMOGLOBIN 24 pg (27-31); MEAN CORPUSCULAR HGB CONC 30 g/dL (33-37); MEAN CORPUSCULAR VOLUME 80.1 fL (80-94); MONOCYTES # (AUTO) 0.2 K/uL (0.8-1.0); MONOCYTES % (AUTO) 1.7 % (1.7-9.3); NEUTROPHILS # (AUTO) 8.1 K/uL (1.8-7.7); NEUTROPHILS % (AUTO) 89.9 % (42.2-75.2); PLATELET COUNT (AUTO) 163 K/uL (140-450); RED BLOOD CELL COUNT(AUTO) 5.67 MIL/uL (4.20-5.40); RED CELL DISTRIBUTION WIDTH 19.1 % (11.6-13.7)
[2018-12-24] MEDS ORDERED: DEXTROSE 50% 50 ML SYR IVP PRN (08:30)
[2018-12-24] MEDS ORDERED: DEXT 5% / NACL 0.9% 500 ML IV SCH (08:30)
--- NOTE | 2018-12-24 08:32 | NUR ---
PATIENT HAS BEEN SCREENED AND CATEGORIZED MODERATE NUTRITION RISK. PATIENT WILL BE SEEN WITHIN 3-5 DAYS OF ADMISSION. 12/26/18-12/28/[address]
[2018-12-24 08:35] LABS: CREATININE 0.5 mg/dL (0.6-1.3); POTASSIUM 3.7 mmol/L (3.5-5.1)
[2018-12-24 08:37] LABS: PHOSPHORUS 4.6 mg/dL (2.5-4.9)
[2018-12-24 08:47] LABS: CARBON DIOXIDE 45.7 mmol/L (21-32)
[2018-12-24] MEDS: BLOOD GLUCOSE MONITORING 1 DEV DEV FS SCH ×3 (08:58→16:27)
--- NOTE | 2018-12-24 09:00 | NUR ---
SCHEDULED MEDICATION GIVEN, PT TOLERATED WELL.
--- NOTE | 2018-12-24 10:00 | NUR ---
PT IS RESTING IN BED, NO S/S OF DISTRESS, VSS, DENIES PAIN, REPOSITION SELF.
[2018-12-24] MEDS ORDERED: AZITHROMYCIN 250 MG in DEXTROSE 5% 250 ML IV SCH (11:00)
--- NOTE | 2018-12-24 11:30 | NUR ---
BIPAP SETTINGS CHANGED PER DR GLORIA'S ORDERS. IPAP 20 EPAP 8 RATE 20. PATIENT IS TOLERATING BIPAP WELL. NO RESP DISTRESS NOTED AT THIS TIME. 02 SATS 95% HR 82. WILL CONTINUE TO MONITOR.
--- NOTE | 2018-12-24 11:30 | NUR ---
DR. GLORIA CAME IN TO SEE PATIENT AT BEDSIDE, RT AND DR. LIVE AT BEDSIDE WELL, WILL FOLLOW UP WITH NEW ORDERS.
--- NOTE | 2018-12-24 11:45 | NUR ---
INSERTED MILES CATHETER 16FR ORDERED, 500ML CLEAR YELLOW URINE NOTED, PT TOLERATED WELL.
--- NOTE | 2018-12-24 12:00 | NUR ---
PT IS RESTING IN BED, NO S/S OF DISTRESS, VSS, DENIES PAIN, WILL CONTINUE TO MONITOR.
--- NOTE | 2018-12-24 13:20 | NUR ---
PATIENT SETTINGS CHANGED POST ABG PER DR GLORIA. IPAP 22 EPAP 8. I TIME 0.75. WILL CONTINUE TO MONITOR. ABG IN ONE HOUR.
--- NOTE | 2018-12-24 13:40 | NUR ---
DR. GLORIA AND DR. SAENZ AT BEDSIDE PLANNED TO INTUBATE PATIENT AT BEDSIDE, PATIENT IS CRYING AND SCARED, DR. GLORIA DECIDED NOT INTUBATE AT THIS TIME ACCORDING TO PATIENT'S CONDITION, STATED WILL REPEAT ABG IN ONE HOUR, AND CALL HIM FOR THE RESULT.
--- NOTE | 2018-12-24 14:00 | NUR ---
PT STILL CRYING AND PRAYING, HR ELEVATED TO 120-130, TRIED TO CALM HER DOWN, FAMILY MEMBER AT BEDSIDE.
--- NOTE | 2018-12-24 15:31 | NUR ---
SPOKE TO DR. SAENZ TO CANCEL ABG AT 1600. ABG AT 2000 IS STILL ACTIVE.
--- NOTE | 2018-12-24 16:00 | NUR ---
PM CARE AND ORAL CARE PROVIDED, NO S/S OF DISTRESS, VSS, DENIES PAIN, ABLE TO SELF POSITION AT THIS TIME.
--- NOTE | 2018-12-24 18:00 | NUR ---
PT IS WATCHING TV IN BED, STILL ON BIPAP, NO S/S OF DISTRESS, VSS, DENIES PAIN, SELF REPOSITION.
--- NOTE | 2018-12-24 19:30 | NUR ---
RECEIVED REPORT FROM MORNING RN, ZAY, FOR CONTINUITY OF CARE. PT AFEBRILE. FLACC 0. PT LAYING IN BED. AWAKE AND ALERT. ORIENTED X4. ABLE TO MAKE NEEDS KNOWN AND ABLE TO FOLLOW COMMANDS. PT DENIES ANY DISCOMFORT AT THIS TIME. LUNG SOUNDS AUSCULTATED AND WAS CLEAR. PT ON BIPAP WITH FIO2 50% AND SETTINGS 22/8. RESPIRATIONS EVEN AND UNLABORED. NO SOB NOTED. CHEST RISE SYMMETRIC. S1+S2 HEARD. SR ON MONITOR. PULSES PALPABLE IN ALL EXTREMITIES. NO JVD NOTED. ABDOMEN ROUND, SOFT AND NONDISTENDED. NO BM NOTED AT THIS TIME. BS ACTIVE IN ALL QUADRANTS. PT HAS MILES CATHETER IN PLACE. CLEAR AND YELLOW URINE NOTED. PT HAS PERIPHERAL IV ACCESS ON LEFT HAND 225 AND RIGHT HAND 22G. DRESSINGS ARE CLEAN, DRY AND INTACT. KEPT HOB AT 30 DEGREES. PT SKIN IS DRY AND WARM TO TOUCH. ALL SAFETY PRECAUTIONS ARE IN PLACE. CALL LIGHT WITHIN REACH. WILL CONTINUE TO MONITOR PT.
--- NOTE | 2018-12-24 20:46 | NUR ---
CALLED DR GUTIERREZ TO REPORT LAST ABG, AND DR FLEMING CALLED [facility].REPORT ABG, WAS IMPROVED 7.467, PCO2 63.3, PO2 86.1'HC02 44.7;E 17.4, SO2 97.2. NO CHANGES IN BIPAP, LEAVE PT IN SAME SETTINGS
--- NOTE | 2018-12-24 21:42 | NUR ---
DR. BROOKE AT BEDSIDE AT THIS TIME TO SEE PT.
--- NOTE | 2018-12-24 23:20 | NUR ---
PT WATCHING TELEVISION AT THIS TIME. SR ON MONITOR. DENIES PAIN AT THIS TIME. VS REMAINS STABLE. PT DENIES ANY DISCOMFORT AT THIS TIME. CALL LIGHT WITHIN REACH. ALL SAFETY PRECAUTIONS ARE IN PLACE. IV ACCESS ARE PATENT, INTACT, AND ASYMPTOMATIC.
[2018-12-25] VITALS (19 sets, daily range): BP systolic 101–135; BP diastolic 57–80
--- NOTE | 2018-12-25 01:15 | NUR ---
NO CHANGE IN PT'S CONDITION AT THIS TIME. OXYGEN SATURATION WNL. RESPIRATIONS REMAINS EVEN AND UNLABORED. CHEST RISE SYMMETRIC. PT DENIES ANY DISCOMFORT AT THIS TIME.
--- NOTE | 2018-12-25 02:25 | NUR ---
RESPIRATIONS EVEN AND UNLABORED. OXYGEN SATURATION 92%. PT DOES NOT APPEAR TO BE EXPERIENCING ANY DISCOMFORT AT THIS TIME. ALL SAFETY PRECAUTIONS ARE IN PLACE.
--- NOTE | 2018-12-25 04:28 | NUR ---
PT REMAINS AOX4. ABLE TO MAKE NEEDS KNOWN. INFORMED PT THAT MORNING CARE WILL BE PROVIDED AND IF IT IS OKAY TO CLEAN HER NOW. PT REFUSED FOR MORNING CARE AT THIS TIME. PT STATES THAT SHE IS OKAY AT THIS TIME IN CHINESE.
[2018-12-25] MEDS: methylPREDNISolone SS 40 MG/ML VIAL IVP SCH ×3 (05:07→20:30)
[2018-12-25] MEDS: AZITHROMYCIN 250 MG in DEXTROSE 5% 250 ML IV SCH (06:14)
[2018-12-25 06:17] LABS: BASOPHILS % (AUTO) 0.2 % (0.0-2.0); EOSINOPHILS % (AUTO) 0.1 % (0.0-4.0); HEMATOCRIT 44.8 % (36-48); HEMOGLOBIN 13.5 g/dL (12.0-16.0); LYMPHOCYTES # (AUTO) 1.4 K/uL (2.5-16.5); LYMPHOCYTES % (AUTO) 20.1 % (20.5-51.1); MEAN CORPUSCULAR HEMOGLOBIN 24 pg (27-31); MEAN CORPUSCULAR HGB CONC 30 g/dL (33-37); MEAN CORPUSCULAR VOLUME 78.1 fL (80-94); MONOCYTES # (AUTO) 0.7 K/uL (0.8-1.0); MONOCYTES % (AUTO) 9.7 % (1.7-9.3); NEUTROPHILS # (AUTO) 4.9 K/uL (1.8-7.7); NEUTROPHILS % (AUTO) 69.9 % (42.2-75.2); PLATELET COUNT (AUTO) 165 K/uL (140-450); RED BLOOD CELL COUNT(AUTO) 5.74 MIL/uL (4.20-5.40); RED CELL DISTRIBUTION WIDTH 19.2 % (11.6-13.7); WHITE BLOOD COUNT (AUTO) 7.1 K/uL (4.8-10.8)
[2018-12-25 06:36] LABS: CREATININE 0.5 mg/dL (0.6-1.3); POTASSIUM 3.4 mmol/L (3.5-5.1)
[2018-12-25 06:42] LABS: ANION GAP 6.5 (8-16); CARBON DIOXIDE 44.9 mmol/L (21-32)
[2018-12-25] MEDS ORDERED: POTASSIUM CHLORIDE 40 MEQ, LIDOCAINE MPF 1% - 5 mL VIAL 25 MG in NACL 0.9% 250 ML IV ONE (06:50)
[2018-12-25] MEDS: BUDESONIDE 0.5 MG/2 ML NEBU INH SCH ×2 (07:23→20:13)
--- NOTE | 2018-12-25 07:23 | NUR ---
RECEIVED PT ON BIPAP. SETTINGS 08/12, R 20, ITIME 0.75, FIO2 35%. PT TOLERATING WELL AT THIS TIME. PT WAKES UP AND RESPONDS TO COMMANDS. BIPAP ALARMS ON AND FUNCTIONING. BIPAP IS PLUGGED INTO A RED OUTLET. WILL CONTINUE TO MONITOR.
--- NOTE | 2018-12-25 07:30 | NUR ---
REPORT RECEIVED FROM SELWYN VILLALTA. PT IS AWAKE AND ALERT. ON BIPAP 22/8, FI02 35%, RR 20/MIN. DENIES ANY RESPIRATORY DIFF. 02 SAT 94% TO 95%. ABLE TO MOVE WELL IN BED WITH MINIMAL ASSIST. MILES CATH INTACT AND PATENT. URINE YELLOWISH. MILES CARE DONE. BATH GIVEN. SOLUTION MAKE UP OPERATOR SHOWS SR WITHOUT ECTOPICS.
[2018-12-25 08:07] LABS: T4 (THYROXINE) 7.3 ug/dL (4.5-12.0)
[2018-12-25] MEDS ORDERED: POTASSIUM CHLORIDE 10 MEQ TABER PO SCH (08:15)
--- NOTE | 2018-12-25 08:21 | NUR ---
ABG RESULTS GIVEN TO .
--- NOTE | 2018-12-25 08:26 | NUR ---
PT TAKEN OFF OF BIPAP TO EAT PHYSICIAN AND NURSE AWARE. PT PLACED ON 3L NC. PT NOT SOB AT THIS TIME. WILL CONTINUE TO MONITOR.
--- NOTE | 2018-12-25 08:30 | NUR ---
HOB ELEVATED. BREAKFAST SERVED. CLEAR LIQUIDS. FED SELF. ATE 100%. NO DIFFICULTY IN SWALLOWING.
[2018-12-25] MEDS: BLOOD GLUCOSE MONITORING 1 DEV DEV FS SCH ×3 (08:47→16:46)
--- NOTE | 2018-12-25 09:59 | NUR ---
PT PLACED BACK ON BIPAP FOR HYPERCAPNIA/VENTILATION PURPOSES. NURSE MADE AWARE. BIPAP ALARMS ON AND FUNCTIONING. WILL CONTINUE TO MONITOR.
--- NOTE | 2018-12-25 10:33 | NUR ---
DR. GLORIA HERE TO SEE AND EXAMINE PT.
--- NOTE | 2018-12-25 10:40 | NUR ---
MADE CHANGES TO BIPAP SETTINGS: 20/8, R20, FIO2 35%. WILL CONTINUE TO MONITOR.
[2018-12-25] MEDS ORDERED: BUMETANIDE 1 MG/4 ML VIAL IV SCH (10:55)
--- NOTE | 2018-12-25 11:49 | NUR ---
PT REMAINS ON BIPAP AT THIS TIME TOLERATING SETTINGS WELL. WILL CONTINUE TO MONITOR.
--- NOTE | 2018-12-25 12:00 | NUR ---
LUNCH SERVED, REGULAR DIET. ATE 100%.
--- NOTE | 2018-12-25 12:31 | NUR ---
PT OFF BIPAP AT THIS TIME TO EAT LUNCH. NURSE ROSS IS BEDSIDE AND AWARE. PT NOT IN ANY DISTRESS. WILL CONTINUE TO MONITOR.
--- NOTE | 2018-12-25 13:55 | NUR ---
PT REMAINS OFF BIPAP AT THIS TIME NOT IN ANY DISTRESS. SPO2 94% ON 3L NC. NURSE AWARE OF PT STATUS. WILL CONTINUE TO MONITOR.
--- NOTE | 2018-12-25 14:33 | NUR ---
ZOFRAN 4 MG IVP GIVEN FOR C/O NAUSEA.
[2018-12-25] MEDS ORDERED: PANTOPRAZOLE 40 MG INJ VIAL IVP SCH (14:35)
--- NOTE | 2018-12-25 15:17 | NUR ---
DENIES ANY N/V AT THIS TIME.
--- NOTE | 2018-12-25 16:00 | NUR ---
AAOX4. DENIES ANY DISCOMFORTS. 02 3 L/MIN/NC.
--- NOTE | 2018-12-25 18:00 | NUR ---
IN SR WITHOUT ECTOPICS. DENIES ANY SOB. 02 3L/MIN/NC. ON ASPIRATION PRECAUTIONS. HOB ELEVATED 30 DEGREES.
--- NOTE | 2018-12-25 19:30 | NUR ---
RECEIVED REPORT FROM MORNING RN, ROSS , FOR CONTINUITY OF CARE. PT AFEBRILE. FLACC 0. PT LAYING IN BED. CITIZEN OF [place] SPEAKING AND ONLY UNDERSTANDS VERY MINIMAL LITHUANIAN. AWAKE AND ALERT. ORIENTED X4. ABLE TO MAKE NEEDS KNOWN AND ABLE TO FOLLOW COMMANDS. PT STATES THAT SHE WAS EXPERIENCING PAIN IN HER ABDOMEN. OFFERED PAIN MEDICATION AND PT REFUSED AT THIS TIME. PT STATES THAT SHE IS OKAY. LUNG SOUNDS AUSCULTATED AND WAS DIMINISHED. PT ON OXYGEN AT 3L/MIN VIA NC. RESPIRATIONS EVEN AND UNLABORED. NO SOB NOTED. CHEST RISE SYMMETRIC. S1+S2 HEARD. SR ON MONITOR. PULSES PALPABLE IN ALL EXTREMITIES. NO JVD NOTED. ABDOMEN ROUND, SOFT AND NONDISTENDED. NO BM NOTED AT THIS TIME. BS ACTIVE IN ALL QUADRANTS. PT HAS MILES CATHETER IN PLACE. CLEAR AND YELLOW URINE NOTED. PT HAS PERIPHERAL IV ACCESS ON LEFT HAND 22G AND RIGHT HAND 22G. ALL IV LINES ARE PATENT, CLEAN, DRY AND INTACT. KEPT HOB AT 30 DEGREES. PT SKIN IS DRY AND WARM TO TOUCH. ALL SAFETY PRECAUTIONS ARE IN PLACE. CALL LIGHT WITHIN REACH. WILL CONTINUE TO MONITOR PT.
[2018-12-25] MEDS: ALBUTEROL SULFATE/IPRATROPIU 3 ML SOL IH PRN (20:13)
[2018-12-25] MEDS: FAMOTIDINE 20 MG TAB PO SCH (20:30)
--- NOTE | 2018-12-25 22:23 | NUR ---
NO CHANGE IN PT'S CONDITION AT THIS TIME. PT ON BIPAP AND TOLERATING WELL. PT ABLE TO PULL SELF UP IN BED WITH STANDBY ASSISTANCE. OXYGEN SATURATION AT 99%. PT STATES SHE DOES NOT NEED ANYTHING AT THIS TIME. ALL SAFETY PRECAUTIONS ARE KEPT IN PLACE. HOB AT 30 DEGREES. WILL CONTINUE TO MONITOR PT.
[2018-12-26] VITALS (13 sets, daily range): BP systolic 93–136; BP diastolic 53–92
--- NOTE | 2018-12-26 00:15 | NUR ---
SR ON MONITOR. RESPIRATIONS EVEN AND UNLABORED. PT REMAINS ON BIPAP AND TOLERATING IT WELL. PT ABLE TO REPOSITION SELF AND PULL SELF UP THE BED. MAINTAINING HOB AT 30 DEGREES. ALL SAFETY PRECAUTIONS ARE IN PLACE. WILL CONTINUE TO MONITOR PT.
--- NOTE | 2018-12-26 02:44 | NUR ---
VS REMAINS STABLE. NO CHANGE IN PT'S CONDITION. PT DENIES ANY DISCOMFORT OR PAIN AT THIS TIME. ALL SAFETY PRECAUTIONS REMAINS IN PLACE. KEPT HOB AT 30 DEGREES. WILL CONTINUE TO MONITOR PT
--- NOTE | 2018-12-26 04:20 | NUR ---
NO CHANGE IN PT'S CONDITION AT THIS TIME. SR ON MONITOR. VS STABLE. RESPIRATIONS EVEN AND UNLABORED. CHEST RISE SYMMETRIC. PT REMAINS ON BIPAP WITH OXYGEN SATURATION AT 91%. NO C/O ANY DISCOMFORT AT THIS TIME. WILL CONTINUE TO MONITOR PT.
[2018-12-26 04:51] LABS: BASOPHILS # (AUTO) 0.1 K/uL (0.00-0.22); BASOPHILS % (AUTO) 0.7 % (0.0-2.0); EOSINOPHILS % (AUTO) 0.2 % (0.0-4.0); HEMATOCRIT 47.8 % (36-48); HEMOGLOBIN 14.5 g/dL (12.0-16.0); LYMPHOCYTES # (AUTO) 1.3 K/uL (2.5-16.5); LYMPHOCYTES % (AUTO) 16.1 % (20.5-51.1); MEAN CORPUSCULAR HEMOGLOBIN 24 pg (27-31); MEAN CORPUSCULAR HGB CONC 30 g/dL (33-37); MEAN CORPUSCULAR VOLUME 77.7 fL (80-94); MONOCYTES # (AUTO) 0.6 K/uL (0.8-1.0); MONOCYTES % (AUTO) 7.9 % (1.7-9.3); NEUTROPHILS # (AUTO) 6.1 K/uL (1.8-7.7); NEUTROPHILS % (AUTO) 75.1 % (42.2-75.2); PLATELET COUNT (AUTO) 188 K/uL (140-450); RED BLOOD CELL COUNT(AUTO) 6.15 MIL/uL (4.20-5.40); RED CELL DISTRIBUTION WIDTH 19.1 % (11.6-13.7); WHITE BLOOD COUNT (AUTO) 8.2 K/uL (4.8-10.8)
[2018-12-26] MEDS: methylPREDNISolone SS 40 MG/ML VIAL IVP SCH ×3 (05:20→20:34)
--- NOTE | 2018-12-26 05:21 | NUR ---
OFFERED MORNING CARE TO PT. PT STATES THAT SHE WANTS IT LATER. WILL TRY AGAIN TO ASK AROUND 6AM.
[2018-12-26] MEDS: AZITHROMYCIN 250 MG in DEXTROSE 5% 250 ML IV SCH (06:14)
[2018-12-26] MEDS ORDERED: FUROSEMIDE 20 MG/2 ML VIAL IVP SCH (06:35)
[2018-12-26] MEDS: BUDESONIDE 0.5 MG/2 ML NEBU INH SCH ×2 (07:18→19:31)
--- NOTE | 2018-12-26 07:18 | NUR ---
RECEIVED BEDSIDE REPORT FROM INDUSTRIAL MILLWRIGHT RN, BEVERLY, FOR CONTINUITY OF CARE. PATIENT IS AAOX4, ABLE TO FOLLOW COMMANDS AND MAKE NEEDS KNOWN. PATIENT SKIN IS WARM, DRY, INTACT. SHE HAS PERIPHERAL IV SITE TO R AND L HAND, 22 GAUGE, PATENT AND ASYMPTOMATIC. PATIENT IS ON BIPAP AT FIO2 35%, 20/8, BREATHING EVEN AND UNLABORED. SHE IS SR ON MONITOR, DENIES ANY PAIN. PATIENT HAS MILES CATHETER IN PLACE. NO SIGNS OF DISTRESS NOTED, HOB IS 30 DEGREES, SIDE RAILS UP 3X, BED LOCKED IN LOW POSITION. NO SIGNS OF DISTRESS NOTED. WILL CONTINUE TO MONITOR.
--- NOTE | 2018-12-26 07:38 | NUR ---
PT TAKEN OFF BIPAP TO EAT BREAKFAST. PT PLACED ON 3L NC. PT NOT IN ANY DISTRESS AT THIS TIME, AWAKE AND ALERT. WILL CONTINUE TO MONITOR.
--- NOTE | 2018-12-26 07:43 | NUR ---
PATIENT IS SITTING UP IN BED, BREAKFAST TRAY PROVIDED, PATIENT ON NASAL CANNULA TOLERATING WELL.
[2018-12-26 07:51] LABS: POTASSIUM 4.2 mmol/L (3.5-5.1)
--- NOTE | 2018-12-26 07:51 | NUR ---
DR. GREGORY AND RESIDENTS AT BEDSIDE, UPDATED ON PATIENT'S CONDITION.
[2018-12-26 07:52] LABS: ANION GAP 6.6 (8-16); CREATININE 0.6 mg/dL (0.6-1.3)
[2018-12-26 07:54] LABS: CARBON DIOXIDE 41.6 mmol/L (21-32)
[2018-12-26] MEDS: BLOOD GLUCOSE MONITORING 1 DEV DEV FS SCH ×3 (08:30→16:38)
[2018-12-26] MEDS: FAMOTIDINE 20 MG TAB PO SCH ×2 (08:31→20:33)
--- NOTE | 2018-12-26 11:22 | NUR ---
PATIENT IS RESTING IN BED, NO SIGNS OF DISTRESS NOTED.
--- NOTE | 2018-12-26 11:22 | NUR ---
DR. RENAE SPOKE WITH FAMILY REGARDING PLAN OF CARE AND RESUSCITATION STATUS, PATIENT'S FAMILY STATES THAT THEY WOULD LIKE TO SEE PATIENT BEFORE MAKING ANY DECISIONS. Addendum: 12/26/18 at 1124 by Estrada Silvestre RN WRONG PATIENT
--- NOTE | 2018-12-26 12:30 | NUR ---
PATIENT PROVIDED WITH LUNCH TRAY, ON NASAL CANNULA TOLERATING WELL. NO SIGNS OF DISTRESS NOTED, WILL CONTINUE TO MONITOR
--- NOTE | 2018-12-26 12:51 | NUR ---
DR. GLORIA IN TO SEE PATIENT, UPDATED ON PATIENT'S CONDITION
--- NOTE | 2018-12-26 14:02 | NUR ---
CONTACTED [facility] AT [phone], ABLE TO SPEAK TO [facility] ([facility]). HE STATED THEY ACCEPT MEDICAL BUT THEY DO NOT DO RESPIRATORY EQUIPMENT. [facility] [phone], THEY DO NOT ACCEPT MEDICAL. CONTACTED [employer] AT [phone], ABLE TO SPEAK TO VELMA. HE STATED THAT THEY ACCEPT MEDICAL BUT PATIENT REQUIRES SLEEP STUDY FIRST. DR. RENAE MADE AWARE.
--- NOTE | 2018-12-26 17:43 | NUR ---
RECEIVED ENDORSEMENT FROM ICU NURSE. PATIENT IS AAOX4, ITALIAN SPEAKING. RESPIRATIONS ARE EVEN AND UNLABORED ON 3L NC. PATIENT DENIES ANY PAIN AT THIS TIME. LEFT AND RIGHT HAND 22G IV INTACT AND SL. PLAN OF CARE WAS REVIEWED WITH PATIENT, PATIENT VERBALIZED UNDERSTANDING. SAFETY MEASURES IN PLACE, CALL LIGHT WITHIN REACH.
--- NOTE | 2018-12-26 17:44 | NUR ---
TRANSFERRED PATIENT TO [facility], ENDORSED CONTINUITY OF CARE TO MST RN. PATIENT AMBULATED WITH STEADY GAIT TO RESTROOM, NO SIGNS OF DISTRESS NOTED.
--- NOTE | 2018-12-26 19:21 | NUR ---
ENDORSED TO [employer]ER[employer] ENGINEER NURSE FOR CONTINUITY OF CARE. PATIENT IS STABLE AT THIS TIME.
--- NOTE | 2018-12-26 19:22 | NUR ---
RECEIVED BEDSIDE REPORT FROM DAY SHIFT RN, KEVEN, FOR CONTINUITY OF CARE. PT ABLE TO MAKE NEEDS KNOWN. PATIENT SKIN IS WARM, DRY, INTACT. IV SITE TO R AND L HAND, 22 GAUGE, PATENT AND ASYMPTOMATIC. BREATHING EVEN AND UNLABORED. DENIES ANY PAIN. PATIENT HAS MILES CATHETER IN PLACE. NO SIGNS OF DISTRESS NOTED, HOB IS 30 DEGREES, SIDE RAILS UP 3X, BED LOCKED IN LOW POSITION. NO SIGNS OF DISTRESS NOTED. WILL CONTINUE TO MONITOR.
[2018-12-26] MEDS: ALBUTEROL SULFATE/IPRATROPIU 3 ML SOL IH PRN (19:31)
--- NOTE | 2018-12-26 20:34 | NUR ---
ADMINISTERED SOLU-MEDROL, PEPCID, AND HEPARIN. PT TOLERATED WELL.
[2018-12-26] MEDS: ACETAMINOPHEN EXTRA STRENGTH 500 MG TAB PO PRN (20:55)
--- NOTE | 2018-12-26 20:55 | NUR ---
PT C/O HEADACHE, NOTIFIED TO DR. KELLY AND GIVEN TYLENOL MD ORDERED. PT TOLERATED WELL. WILL CONTINUE TO MONITOR.
--- NOTE | 2018-12-26 23:00 | NUR ---
PLACED PATIENT ON BIPAP FOR SLEP APNEA. PT TOLERATES MASK
[2018-12-27] VITALS: BP 126/77
--- NOTE | 2018-12-27 | NUR ---
VS CHECKED, WITHIN PT'S BASELINE. WILL CONTINUE TO MONITOR.
--- NOTE | 2018-12-27 02:45 | NUR ---
PT SLEEPING IN BED COMFORTABLY. NO ACUTE DISTRESS NOTED.
--- NOTE | 2018-12-27 03:58 | NUR ---
VS CHECKED, WITHIN PT'S BASELINE. WILL CONTINUE TO MONITOR.
[2018-12-27 04:00] VITALS: BP 118/72
[2018-12-27] MEDS: methylPREDNISolone SS 40 MG/ML VIAL IVP SCH ×3 (05:27→21:52)
--- NOTE | 2018-12-27 05:27 | NUR ---
GIVEN SOLU-MEDROL AND ROCEPHIN MD ORDERED. PT TOLERATED WELL. WILL CONTINUE TO MONITOR.
[2018-12-27] MEDS: AZITHROMYCIN 250 MG in DEXTROSE 5% 250 ML IV SCH (06:16)
--- NOTE | 2018-12-27 06:16 | NUR ---
GIVEN ZITHROMAX MD ORDERED. PT TOLERATED WELL. WILL CONTINUE TO MONITOR.
--- NOTE | 2018-12-27 07:00 | NUR ---
PT SLEEPING IN BED. NO ACUTE DISTRESS NOTED. WILL CONTINUE TO MONITOR.
[2018-12-27 07:35] VITALS: BP 142/77
--- NOTE | 2018-12-27 07:35 | NUR ---
RECEIVED HAND OFF REPORT FROM PM RN PT APPEARS STABLE AND IN NO APPARENT DISTRESS. ALL SAFETY MEASURES ARE IN PLACE PT ON BIPAP. WILL CONTINUE TO MONITOR
[2018-12-27] MEDS: ALBUTEROL SULFATE/IPRATROPIU 3 ML SOL IH PRN (07:41)
[2018-12-27] MEDS: BUDESONIDE 0.5 MG/2 ML NEBU INH SCH ×2 (07:51→20:03)
[2018-12-27 07:59] LABS: ANION GAP 7.6 (8-16); CARBON DIOXIDE 38.7 mmol/L (21-32); CREATININE 0.6 mg/dL (0.6-1.3); POTASSIUM 4.3 mmol/L (3.5-5.1)
[2018-12-27 08:17] LABS: BASOPHILS % (AUTO) 0.3 % (0.0-2.0); EOSINOPHILS % (AUTO) 0.1 % (0.0-4.0); HEMATOCRIT 49.5 % (36-48); HEMOGLOBIN 15.1 g/dL (12.0-16.0); LYMPHOCYTES # (AUTO) 1.5 K/uL (2.5-16.5); LYMPHOCYTES % (AUTO) 21.9 % (20.5-51.1); MEAN CORPUSCULAR HEMOGLOBIN 24 pg (27-31); MEAN CORPUSCULAR HGB CONC 31 g/dL (33-37); MEAN CORPUSCULAR VOLUME 77.3 fL (80-94); MONOCYTES # (AUTO) 0.6 K/uL (0.8-1.0); MONOCYTES % (AUTO) 8.2 % (1.7-9.3); NEUTROPHILS # (AUTO) 4.9 K/uL (1.8-7.7); NEUTROPHILS % (AUTO) 69.5 % (42.2-75.2); PLATELET COUNT (AUTO) 187 K/uL (140-450); RED CELL DISTRIBUTION WIDTH 19.4 % (11.6-13.7)
--- NOTE | 2018-12-27 09:23 | NUR ---
FREQUENT ROUNDING ON PT PT APPEARS STABLE AND IN NO APPARENT DISTRESS. ALL SAFETY MEASURES ARE IN PLACE WILL CONTINUE TO MONITOR
[2018-12-27] MEDS: BLOOD GLUCOSE MONITORING 1 DEV DEV FS SCH ×3 (09:52→17:01)
[2018-12-27] MEDS: FAMOTIDINE 20 MG TAB PO SCH ×2 (09:53→21:49)
--- NOTE | 2018-12-27 10:50 | NUR ---
RECEIVED A CALL FROM [employer] ([place]), HE STATED THAT THEY RAN PATIENT'S INSURANCE AND PATIENT IS ONLY ELIGIBLE FOR AND EMERGENCY SERVICES ONLY AND THEY CANNOT PROVIDE CPAP FOR THIS PATIENT. DR. RENAE MADE AWARE.
--- NOTE | 2018-12-27 11:34 | NUR ---
FREQUENT ROUNDING ON PT PT APPEARS STABLE AND IN NO APPARENT DISTRESS ALL SAFETY MEASURES ARE IN PLACE WILL CONTINUE TO MONITOR
[2018-12-27 12:10] VITALS: BP 130/78
--- NOTE | 2018-12-27 13:24 | NUR ---
FREQUENT ROUNDING ON PT PT APPEARS STABLE AND IN NO APPARENT DISTRESS. ALL SAFETY MEASURES ARE IN PLACE WILL CONTINUE TO MONITOR
--- NOTE | 2018-12-27 15:37 | NUR ---
FREQUENT ROUNDING ON PT PT APPEARS STABLE AND IN NO APPARENT DISTRESS. ALL SAFETY MEASURES ARE IN PLACE WILL CONTINUE TO MONITOR.
[2018-12-27] MEDS: ACETAMINOPHEN EXTRA STRENGTH 500 MG TAB PO PRN (16:15)
[2018-12-27 16:57] VITALS: BP 128/86
--- NOTE | 2018-12-27 17:41 | NUR ---
FREQUENT ROUNDING ON PT PT APPEARS STABLE AND IN APPARENT DISTRESS. ALL SAFETY MEASURES ARE IN PLACE
--- NOTE | 2018-12-27 19:11 | NUR ---
ENDORSED PT TO PM RN PT APPEARS STABLE AND IN NO APPARENT DISTRESS. ALL SAFETY MEASURES ARE IN PLACE
--- NOTE | 2018-12-27 19:15 | NUR ---
RECEIVED REPORT AT BEDSIDE FROM PM SHIFT, PT IN STABLE CONDITION.
[2018-12-27 20:00] VITALS: BP 105/75
--- NOTE | 2018-12-27 20:00 | NUR ---
PT IN BED WITH 3 LITERS V/A N/C PT BREATHING EVEN AND UNLABORED. V/S FOLLOWS T 98.0 P 79 R 18 B/P 106/71 02 98 WITH 3 LITERS VIA N/C. BED LOW AND SIDE RAILS UP X2. PT YOLANDE PAIN. IV SITE ON LEFT HAND IN TACT AND RUNNING TKO. IV SITE ON R HAND INTACT, PT HAS NO C/O VOICED. Addendum: 12/28/18 at 0245 by Yun Matthews RN V/WRONG V/S CORRECT V/S FOLLOWS T 97.8 P 78 R 18 B/P 105/75 02 93% ON 3 LITERS VIA N/C.
--- NOTE | 2018-12-27 21:30 | NUR ---
PT GIVEN DUE PEPCID PO. [id number] GIVEN IVP AND HEPARIN GIVEN SQ. PT PLACED ON BIPAP MACHINE, RT AT BEDSIDE NO S/S OF PAIN OR DISTRESS NOTED.
--- NOTE | 2018-12-27 23:45 | NUR ---
ENDORSED PT TO FAITH SAMANO COMMERCIAL COUNSEL NURSE DUE TO CHANGE IN ASSIGNMENT.
--- NOTE | 2018-12-27 23:45 | NUR ---
RECEIVED BEDSIDE REPORT FROM SELWYN CONNELLY FOR PT'S CONTINUITY OF CARE. PT IS LYING DOWN, APPEARS TO BE ASLEEP WITH NO SIGNS OF DISTRESS. PT IS ON COUNSELOR CAMP, IS ON BIPAP AT NIGHT, HAS LEFT HAND 22G AND SALINE LOCK, AND RIGHT HAND 22G INFUSING WITH NS KVO, HAS MILES CATH IN PLACE (12/24). BED IS ON LOW POSITION, SIDE RAILS ARE UP, AND CALL LIGHT IS WITHIN REACH. WILL MONITOR PT THROUGHOUT SHIFT.
[2018-12-28] VITALS: BP 114/72
--- NOTE | 2018-12-28 00:30 | NUR ---
VS CHECKED AND CHARTED. PT DENIES ANY PAIN AT THIS TIME. BIPAP STILL ON. WILL CONTINUE TO MONITOR PT.
--- NOTE | 2018-12-28 02:45 | NUR ---
MADE ROUNDS. PT ASLEEP WITH NO SIGNS OF DISTRESS. WILL CONTINUE TO MONITOR PT.
[2018-12-28 04:00] VITALS: BP 127/73
--- NOTE | 2018-12-28 04:30 | NUR ---
VS CHECKED AND CHARTED. PT DENIES ANY PAIN AT THIS TIME. WILL CONTINUE TO MONITOR PT.
[2018-12-28] MEDS: methylPREDNISolone SS 40 MG/ML VIAL IVP SCH ×2 (05:02→13:19)
--- NOTE | 2018-12-28 05:02 | NUR ---
ADMINISTERED SCHEDULED IV PUSH MEDICATION ORDERED. HUNG SCHEDULED IV ABX ORDERED. PT TOLERATED IT WELL. WILL CONTINUE TO MONITOR PT.
[2018-12-28] MEDS ORDERED: AZITHROMYCIN 500 MG INJ VIAL IV ONE (05:52)
[2018-12-28] MEDS: AZITHROMYCIN 250 MG in DEXTROSE 5% 250 ML IV SCH (06:04)
--- NOTE | 2018-12-28 06:04 | NUR ---
ADMINISTERED SCHEDULED IV ABX ORDERED. PT LYING DOWN WITH NO SIGNS OF DISTRESS. WILL CONTINUE TO MONITOR PT.
[2018-12-28] MEDS: ACETAMINOPHEN EXTRA STRENGTH 500 MG TAB PO PRN (06:34)
--- NOTE | 2018-12-28 06:35 | NUR ---
RIGHT HAND IV INFILTRATED. DISCONTINUED IV. PT C/O PAIN, 09/26, ADMINISTERED PO PRN PAIN MEDICATION ORDERED. WILL ENDORSE TO AM SHIFT RN FOR PT'S CONTINUITY OF CARE.
--- NOTE | 2018-12-28 07:30 | NUR ---
RECEIVED BEDSIDE REPORT FROM COMPUTER AIDED DESIGN DRAFTER NURSE FOR CONTINUITY OF CARE. PATIENT IS RESTING ON BED AT THIS TIME, AROUDABLE TO VOICE. PATIENT IS AAOX4, SPEAKS WOLOF AND ABLE TO UNDERSTAND MINIMAL WOLOF, PATIENT IS ABLE TO MAKE NEEDS KNOWN AND FOLLOW COMMANDS. PATIENT IS CALM AND COOPERATIVE. RESPIRATION EVEN AND UNLABORED ON 3L VIA 3L NC. PATIENT DENIED PAIN AND SOB. NO SIGNS OF DISTRESS NOTED. IV ON LFA 24G AND L HAND 22G, CLEAN AND INTACT. SKIN CLEAN AND INTACT. MILES CATHETER IN PLACE, AND DRAINING YELLOW URINE. PATIENT IS ABLE TO AMBULATE WITH ASSIST. DISCUSSED PLAN OF CARE WITH PATIENT AND PATIENT VERBALIZED UNDERSTANDING. TELE MONITOR IN PLACE. BED IN LOW POSITION AND CALL LIGHT WITHIN REACH. INSTRUCTED PATIENT TO USE THE CALL LIGHT FOR ANY ASSISTANCE AND PATIENT WAS AWARE.
[2018-12-28 08:00] VITALS: BP 114/60
--- NOTE | 2018-12-28 08:26 | NUR ---
INFORMED PATIENT THAT SHE WILL BE DISCHARGE FROM THE HOSPITAL TODAY. PATIENT SAID HER FAMILY WILL BE ABLE TO PICK HER UP AROUND 3PM. PATIENT AWAKE AND RESTING ON BED AT THIS TIME. DENIED PAIN AND SOB. NO SIGNS OF DISTRESS NOTED. SAFETY MEASURES IN PLACE. BED IN LOW POSITION AND CALL LIGHT WITHIN REACH. INSTRUCTED PATIENT TO USE THE CALL LIGHT FOR ANY ASSISTANCE AND PATIENT WAS AWARE.
[2018-12-28] MEDS: BUDESONIDE 0.5 MG/2 ML NEBU INH SCH (08:29)
[2018-12-28] MEDS ORDERED: ALBU3SOL83 IH (08:48)
[2018-12-28] MEDS: FAMOTIDINE 20 MG TAB PO SCH (08:54)
[2018-12-28] MEDS: BLOOD GLUCOSE MONITORING 1 DEV DEV FS SCH ×2 (08:57→13:19)
--- NOTE | 2018-12-28 08:57 | NUR ---
ADMINISTERED MEDS PER MD ORDER, PATIENT TOLERATED WELL. MEDS EDUCATION PROVIDED TO PATIENT AND PATIENT VERBALIZED UNDERSTANDING. PATIENT IS AWAKE AND RESTING ON BED AT THIS TIME. DENIED PAIN AND SOB. SPO2 IS AT 95% ON 3LPM VIA NC. RESPIRATION EVEN AND UNLABORED ON 3LPM VIA NC. NO SIGNS OF DISTRESS NOTED. SAFETY MEASURES IN PLACE. BED IN LOW POSITION AND CALL LIGHT WITHIN REACH. INSTRUCTED PATIENT TO USE THE CALL LIGHT FOR ANY ASSISTANCE AND PATIENT WAS AWARE.
[2018-12-28] MEDS ORDERED: FURO-572 PO (09:11)
[2018-12-28] MEDS ORDERED: ALBU-118 IH (09:19)
--- NOTE | 2018-12-28 09:20 | NUR ---
NOTIFIED DR SAENZ THAT PATIENT'S BLOOD GLUCOSE WAS 168 THIS MORNING AFTER BREAKFAST. DR SAENZ WAS AWARE AND SAID NO COVER NEEDED.
--- NOTE | 2018-12-28 09:45 | NUR ---
PATIENT AWAKE AND RESTING ON BED AT THIS TIME. DENIED PAIN AND SOB. NO SIGNS OF DISTRESS NOTED. SAFETY MEASURES IN PLACE. TELE MONITOR ATTACHED. BED IN LOW POSITION AND CALL LIGHT WITHIN REACH. INSTRUCTED PATIENT TO USE THE CALL LIGHT FOR ANY ASSISTANCE AND PATIENT WAS AWARE.
--- NOTE | 2018-12-28 11:24 | NUR ---
PATIENT AWAKE AND RESTING ON BED AT THIS TIME. DENIED PAIN AND SOB. RESPIRATION EVEN AND UNLABORED ON 3L VIA NC. NO SIGNS DISTRESS NOTED. SAFETY MEASURES IN PLACE. BED IN LOW POSITION AND CALL LIGHT WITHIN REACH. INSTRUCTED PATIENT TO USE THE CALL LIGHT FOR ANY ASSISTANCE AND PATIENT WAS AWARE.
[2018-12-28 12:00] VITALS: BP 103/63
--- NOTE | 2018-12-28 13:19 | NUR ---
ADMINISTERED MED PER MD ORDER, PATIENT TOLERATED WELL. MED EDUCATION PROVIDED TO PATIENT AND PATIENT VERBALIZED UNDERSTANDING. PATIENT IS SITTING ON EDGE OF BED. SPO2 AT 95%. NO SIGNS DISTRESS NOTED. SAFETY MEASURES IN PLACE. BED IN LOW POSITION AND CALL LIGHT WITHIN REACH. INSTRUCTED PATIENT TO USE THE CALL LIGHT FOR ANY ASSISTANCE AND PATIENT WAS AWARE.
--- NOTE | 2018-12-28 14:35 | NUR ---
DC MILES CATHETER, PATIENT TOLERATED WELL. PATIENT IS RESTING ON BED AT THIS TIME. PER PATIENT, HER RIDE WILL BE HERE AROUND 1530 AND SHE WILL LET ME KNOW ONCE RIDE IS HERE. DENIED PAIN, SOB, AND DIZZINESS. NO SIGNS DISTRESS NOTED. SAFETY MEASURES IN PLACE. BED IN LOW POSITION AND CALL LIGHT WITHIN REACH. INSTRUCTED PATIENT TO USE THE CALL LIGHT FOR ANY ASSISTANCE AND PATIENT WAS AWARE.
--- NOTE | 2018-12-28 15:10 | NUR ---
PATIENT AWAKE AND TALKING ON HER PHONE AT THIS TIME. DENIED PAIN AND SOB. NO SIGNS DISTRESS NOTED. AWAITING FOR TESTING SHAKING SHIPPING TO ARRIVE THE HOSPITAL. SAFETY MEASURES IN PLACE. BED IN LOW POSITION AND CALL LIGHT WITHIN REACH. INSTRUCTED PATIENT TO USE THE CALL LIGHT FOR ANY ASSISTANCE AND PATIENT WAS AWARE.
--- NOTE | 2018-12-28 15:29 | NUR ---
PATIENT SAID " MY FRIEND IS COMING IN 20 MINS." PATIENT IS CHANGING INTO HER OWN CLOTHES AT THIS TIME. NO SIGNS DISTRESS NOTED. SAFETY MEASURES IN PLACE. BED IN LOW POSITION AND CALL LIGHT WITHIN REACH. INSTRUCTED PATIENT TO USE THE CALL LIGHT FOR ANY ASSISTANCE AND PATIENT WAS AWARE.
--- NOTE | 2018-12-28 15:35 | NUR ---
DISCHARGE INSTRUCTION PROVIDED TO PATIENT AT BEDSIDE. EDUCATED PATIENT ON MD FOLLOW UP, SEEK MEDICAL HELP IMMEDIATELY IN THE CASE OF MEDICAL EMERGENCY, DISEASE MANAGEMENT, MEDICATION REGIME, MEDICATION SIDE EFFECTS, DIET REGIME AND LIFE STYLE. PATIENT VERBALIZED UNDERSTANDING. ANSWERED ALL PATIENT'S QUESTIONS. DC IV AND CANNULA INTACT AND NO BLEEDING AT IV SITES. REMOVED ALL ID BANDS. PATIENT TOOK ALL HER BELONGINGS. PATIENT CHANGED INTO HER OWN CLOTHES. ESCORTED PATIENT TO THE LOBBY WITH THE WHEEL CHAIR. PATIENT IS GOING DISCHARGE HOME ACCOMPANY WITH FRIEND. PATIENT IS IN STABLE CONDITION.
== END 2018-12-28 15:35 | disposition home or self-care (01) | DRG 194 ==
LOC: MED 21:30 → MTU 12-24 00:46 → MIC 12-24 07:30 → MTU 12-26 17:45
PROVIDERS: ADMIT General Practice; ATTEND General Practice
PROC: 5A09357 Assistance with Respiratory Ventilation, Less than 24 Consecutive Hours, Continuous Positive Airway Pressure (ICD-10-PCS; principal; 2018-12-24)
PROC: 5A09357 Assistance with Respiratory Ventilation, Less than 24 Consecutive Hours, Continuous Positive Airway Pressure (ICD-10-PCS; 2018-12-26)
PROC: 5A09357 Assistance with Respiratory Ventilation, Less than 24 Consecutive Hours, Continuous Positive Airway Pressure (ICD-10-PCS; 2018-12-27)
PROC: 5A09357 Assistance with Respiratory Ventilation, Less than 24 Consecutive Hours, Continuous Positive Airway Pressure (ICD-10-PCS; 2018-12-28)
DX: I11.0 Hypertensive heart disease with heart failure (principal); J96.21 Acute and chronic respiratory failure with hypoxia; R65.11 Systemic inflammatory response syndrome (SIRS) of non-infectious origin with acute organ dysfunction; I27.20 Pulmonary hypertension, unspecified; E83.42 Hypomagnesemia; I07.1 Rheumatic tricuspid insufficiency; E66.2 Morbid (severe) obesity with alveolar hypoventilation; I50.43 Acute on chronic combined systolic (congestive) and diastolic (congestive) heart failure; I42.9 Cardiomyopathy, unspecified; J44.1 Chronic obstructive pulmonary disease with (acute) exacerbation; Z68.44 Body mass index [BMI] 60.0-69.9, adult; J44.9 Chronic obstructive pulmonary disease, unspecified; J96.22 Acute and chronic respiratory failure with hypercapnia; Z87.891 Personal history of nicotine dependence; Z88.5 Allergy status to narcotic agent; Z88.8 Allergy status to other drugs, medicaments and biological substances
CPT/HCPCS: 36415; 36600; 71045; 80048; 80053; 80305; 81003; 82150; 82550; 82803; 82948; 83036; 83605; 83690; 83735; 83880; 84100; 84436; 84439; 84443; 84484; 85025; 85610; 85730; 87040; 87081; 87086; 93005; 94640; 94660; 96374; 97116; 97161-GP; 97530; 99285; C9113; J0456; J0696; J1644; J1885; J1940; J2405; J2920; J3475; J3490; J7030; J7042; J7060; J7620; J7626; Q0092

== ENCOUNTER 2019-04-21 10:28 | Emergency (ER) | payer MEDICAID ==
[~2019-04-21] VITALS: Ht 154.9 cm; Wt 142.9 kg
[~2019-04-21 10:28] MED LIST changes: +ALBU-118 IH; +FURO-572 PO; -IBUP-1801 PO
[2019-04-21 10:38] VITALS: BP 95/50
--- NOTE | 2019-04-21 10:49 | NUR ---
Pt placed in w/c and placed on oxygen via nasal canula at 2LPM.
--- NOTE | 2019-04-21 10:53 | NUR ---
Pt taken to bed 12.
--- NOTE | 2019-04-21 11:12 | NUR ---
PT PRESENTS TO ED FOR EVALUATION OF SOB, WEAKNESS AND HEADACHE X 1 WK. PT AAO X4, GCS 15, ABLE TO SPEAK WITH FULL COMPLETE SENTENCES. RESPIRATIONS EVEN AND UNLABORED, RML, RLL, LLL DIMINISHED. O2 SAT ROOM AIR 76%, PLACED ON O2 SAT 4 L/M VIA NC. O2 SAT WNL. SKIN WARM/PINK/DRY, _+PMSC. ABDOMEN SOFT, NON DISTENDED, ACTIVE BOWEL SOUND X4. NATURAL GAS FIELD PROCESSING SUPERVISOR SR, BP WNL. STATED HEADACHE 01/26. DR. BARRIENTOS MADE AWARE OF PT STATUS. WILL CONTINUE TO MONITOR
[2019-04-21] MEDS ORDERED: MORPHINE SULFATE 4 MG/ML SYR IM ONE (11:40)
[2019-04-21] MEDS ORDERED: KETOROLAC 30 MG/ML VIAL IM ONE (11:40)
--- NOTE | 2019-04-21 13:26 | NUR ---
PT LAYING SEMI CLEMENS IN BED, FAMILY AT BEDSIDE. SPO2 97% ON 3L NC, PT IS ALSO ON HOME O2 3L, RR 20 EVEN AND UNLABORED. REPORTS TOLERABLE 5/10 HEADACHE. ALL NEEDS MET AT THIS TIME.
[2019-04-21 13:40] VITALS: BP 117/56
== END 2019-04-21 13:40 | disposition home or self-care (01) ==
LOC: MED 10:28
DX: R51 Headache (principal); R11.10 Vomiting, unspecified; R53.1 Weakness; R06.02 Shortness of breath; I11.0 Hypertensive heart disease with heart failure; I50.9 Heart failure, unspecified; J44.9 Chronic obstructive pulmonary disease, unspecified; Z79.899 Other long term (current) drug therapy; Z88.5 Allergy status to narcotic agent; Z88.6 Allergy status to analgesic agent
CPT/HCPCS: 96372; 99283; J1885; J2270

== ENCOUNTER 2019-06-12 11:17 | Inpatient (IN) | payer MEDICAID ==
[~2019-06-12] VITALS: Ht 154.9 cm; Wt 142.4 kg
[2019-06-12 11:21] VITALS: BP 130/93
--- NOTE | 2019-06-12 11:35 | NUR ---
43 Y/O FEMALE C/O SOB, CHEST PAIN, AND BILATERAL EAR PAIN X 15 DAYS. PT STATES SOB AND CHEST PAIN INCREASING TODAY. NON RADIATING CHEST PAIN PER PT. 9/10 SQUEEZING/PRESSURE TO CHEST. DENIES DRAINAGE FROM EARS. RR DEEP AND UNLABORED. SITTING UPRIGHT POSITIONED FOR COMFORT. VSS. WILL CONTINUE TO MONITOR MEDHX: CHF, ASMTHA, COPD, HTN, SLEEP APNEA
--- NOTE | 2019-06-12 11:40 | NUR ---
PT STATES SHE IS ON OXYGEN AT HOME, 3L NC PLACED ON PT.
[2019-06-12] MEDS ORDERED: predniSONE 20 MG TAB PO ONE (11:45)
[2019-06-12] MEDS ORDERED: ALBUTEROL SULFATE/IPRATROPIU 3 ML SOL IH ONE ×2 (11:45→14:05)
[2019-06-12] MEDS ORDERED: ALBUTEROL 0.083% 2.5 MG/3 ML NEBU INH ONE ×2 (11:45→14:05)
--- NOTE | 2019-06-12 11:55 | NUR ---
Breathing treatment administered by respiratory therapist at bedside.
--- NOTE | 2019-06-12 12:17 | NUR ---
STATES EASIER WORK OF BREATHING AFTER BREATHING TREATMENT. DR BROWN MADE AWARE
--- NOTE | 2019-06-12 13:38 | NUR ---
SITTING UPRIGHT AWAKE AND ALERT. RR EVEN AND UNLABORED. DENIES SOB. FAMILY AT BEDSIDE. WILL CONTINUE TO MONITOR
--- NOTE | 2019-06-12 13:57 | NUR ---
DR BROWN AT BEDSIDE EXAMINING PT
--- NOTE | 2019-06-12 14:00 | NUR ---
Dr. York is evaluating the patient at bedside.
[2019-06-12] MEDS ORDERED: FUROSEMIDE 40 MG/4 ML VIAL IVP ONE (14:05)
[2019-06-12 14:49] LABS: BASOPHILS # (AUTO) 0.1 K/uL (0.00-0.22); BASOPHILS % (AUTO) 1.6 % (0.0-2.0); EOSINOPHILS % (AUTO) 0.4 % (0.0-4.0); HEMATOCRIT 44.5 % (36-48); HEMOGLOBIN 14.1 g/dL (12.0-16.0); LYMPHOCYTES # (AUTO) 0.9 K/uL (2.5-16.5); LYMPHOCYTES % (AUTO) 11.3 % (20.5-51.1); MEAN CORPUSCULAR HEMOGLOBIN 27 pg (27-31); MEAN CORPUSCULAR HGB CONC 32 g/dL (33-37); MEAN CORPUSCULAR VOLUME 83.3 fL (80-94); MONOCYTES # (AUTO) 0.3 K/uL (0.8-1.0); MONOCYTES % (AUTO) 3.3 % (1.7-9.3); NEUTROPHILS # (AUTO) 6.8 K/uL (1.8-7.7); NEUTROPHILS % (AUTO) 83.4 % (42.2-75.2); PLATELET COUNT (AUTO) 130 K/uL (140-450); RED BLOOD CELL COUNT(AUTO) 5.34 MIL/uL (4.20-5.40); RED CELL DISTRIBUTION WIDTH 15.2 % (11.6-13.7); WHITE BLOOD COUNT (AUTO) 8.2 K/uL (4.8-10.8)
[2019-06-12 14:59] LABS: CREATININE 0.4 mg/dL (0.6-1.3); POTASSIUM 4.4 mmol/L (3.5-5.1); TOTAL BILIRUBIN 0.3 mg/dL (0.0-1.0)
[2019-06-12 15:00] LABS: ANION GAP 2.4 (8-16)
[2019-06-12] MEDS ORDERED: cefTRIAXone 1,000 MG in DEXT 5% MINI-BAG PLUS 50 ML IV ONE (15:35)
[2019-06-12] MEDS ORDERED: cefTRIAXone 1,000 MG VIAL ONE (15:39)
[2019-06-12] MEDS ORDERED: DOCUSATE SODIUM 100 MG GELCAP PO PRN (15:40)
[2019-06-12] MEDS ORDERED: ONDANSETRON 4 MG/2 ML VIAL IM/IVP PRN (15:40)
[2019-06-12] MEDS ORDERED: ALBUTEROL SULFATE/IPRATROPIU 3 ML SOL IH PRN (15:40)
[2019-06-12] MEDS ORDERED: LORazepam 2 MG/ML VIAL IM/IVP PRN (15:40)
--- NOTE | 2019-06-12 16:20 | NUR ---
RECEIVED REPORT FROM ER NURSE ANKIT. PT TRANSFERRED WITH STANDBY ASSISTANCE FROM [facility] TO [facility] BED. PT AAOX4, DENIES PAIN. PT ON ORDER TO DELIVERY SUPERVISOR. IV ON RT HAND 22 GA ON SALINE LOCK. RESPIRATIONS EVEN AND UNLABORED ON O2 3L VIA N/C. ABD SOFT, ACTIVE BS, LBM 06/09. PT HAS F/C IN PLACE, INSERTED IN ER. SKIN IS INTACT, WARM TO TOUCH. REVIEWED POC WITH PT, PT VERBALIZED UNDERSTANDING.
--- NOTE | 2019-06-12 16:23 | NUR ---
Patient will be admitted to care of DR GREGORY. Admited to TELE. Will go to room 125B. Belongings list completed. Report to SELWYN GUILLAUME.
[2019-06-12 16:28] VITALS: BP 133/71
[2019-06-12 16:42] LABS: MAGNESIUM 1.9 mg/dL (1.8-2.4); PHOSPHORUS 3.1 mg/dL (2.5-4.9); THYROID STIMULATING HORMONE 0.95 uIU/mL (0.34-3.74)
[2019-06-12 16:43] LABS: PROTHROMBIN TIME 9.6 secs (10.8-13.4)
--- NOTE | 2019-06-12 17:00 | NUR ---
INTERVIEWED PT WITH ASSESSMENT QUESTIONS USING [employer] PHONE MARBLE SETTER HELPER, #[id number]. PT COOPERATIVE AND NO S/S OF DISTRESS.
--- NOTE | 2019-06-12 17:20 | NUR ---
PT REPORTED THAT SHE HAD BROWN, FORMED STOOL WITH MODERATE AMOUNT, RN UNABLE TO ASSESS. CONTINUED ASSESSMENT QUESTIONS USING [employer] PHONE MARINE RADIO INSTALLER AND SERVICER, #[id number].
--- NOTE | 2019-06-12 17:55 | NUR ---
REVIEWED ABG SAMPLE REPORT WITH DR. VANE PORRAS NO NEW ORDERS FOREMENTIONED MD TO ASSESS PATIENT AND SUBMIT BIPAP ORDERS TO CARDIOPULMONARY DEPT
[2019-06-12] MEDS ORDERED: INFLUENZA VACCINE QUAD 0.5 ML SYR IMVAC PRN (18:05)
--- NOTE | 2019-06-12 18:23 | NUR ---
ADMINISTERED AZITHROMYCIN PER ORDER, PT AWARE OF INDICATION AND POTENTIAL SIDE EFFECTS.
[2019-06-12] MEDS ORDERED: AZITHROMYCIN 250 MG TAB PO SCH (18:30)
--- NOTE | 2019-06-12 19:05 | NUR ---
ENDORSED AND GIVEN SBAR REPORT TO SELWYN EUGENE. PT HAS NO S/S OF DISTRESS.
--- NOTE | 2019-06-12 19:12 | NUR ---
REPORT RECEIVED FROM AM NURSE AT BEDSIDE. PT IN STABLE CONDITION. AAOX3-4. INTRODUCED SELF TO PT. BOARD UPDATED. NO COMPLAINTS OF PAIN. NO SOB. AFEBRILE. PT IS AMBULATORY BUT UNSTEADY. PT HAS MILES. IV SITE R HAND 22G SL PATENT AND INTACT. SKIN IS WARM, DRY, AND INTACT WITH NO OPEN WOUNDS. BED LOCKED IN LOW POSITION. CALL ALBARADO WITHIN REACH. SAFETY PRECAUTION IN PLACE. ALL NEEDS MET AT THIS TIME.
[2019-06-12] MEDS: ALBUTEROL SULFATE/IPRATROPIU 3 ML SOL IH SCH (19:40)
[2019-06-12] MEDS: BUDESONIDE 0.5 MG/2 ML NEBU INH SCH (19:40)
[2019-06-12 20:00] VITALS: BP 106/60
[2019-06-12] MEDS ORDERED: BISACODYL 10 MG SUPP RC SCH (20:00)
--- NOTE | 2019-06-12 20:07 | NUR ---
DULCOLAX SUPPOSITORY GIVEN. HEPARIN GIVEN SUB. COLACE GIVEN PO. PT TOLERATED WELL.
[2019-06-12] MEDS: DOCUSATE SODIUM 100 MG GELCAP PO SCH (20:08)
--- NOTE | 2019-06-12 21:20 | NUR ---
ATTEMPTED ABG. PT REFUSED. WILL RETURN TO ATTEMPT AGAIN.
[2019-06-12 22:10] LABS: BARBITURATE, URINE NEG. ng/ml (NEG <=200); BENZODIAZEPINE, URINE NEG. ng/mL (NEG <=200); CANNABINOID, URINE NEG. ng/mL (NEG <=50); COCAINE, URINE NEG. ng/mL (NEG <=300); OPIATE, URINE NEG. ng/mL (NEG <=2000); PHENCYCLIDINE SCREEN,URINE NEG. ng/mL (NEG <=25)
--- NOTE | 2019-06-12 22:15 | NUR ---
PT SLEEPING COMFORTABLY BUT AROUSABLE. NO S/S OF DISTRESS NOTED. WILL CONTINUE TO MONITOR.
[2019-06-13] VITALS (23 sets, daily range): BP systolic 94–143; BP diastolic 57–104
--- NOTE | 2019-06-13 00:20 | NUR ---
PT ABG'S ARE CRITICAL. MADE AWARE BY RT. UPGRADED TO ICU STATUS AND BEING TRANSFERRED TO ICU. PT HOOKED UP TO MONITOR, UA TAKEN, FLU A AND B TAKEN AND SENT TO LAB, AND TRANSFERRED. V/S STABLE. REPORT GIVEN TO JUVE SAMANO.
--- NOTE | 2019-06-13 00:30 | NUR ---
RECEIVED PT FROM MST NURSE AND TOOK OVER CARE OF PT. PT IS ALERT, SLOVENIAN SPEAKING. LABORED BREATHING. PT DENIES FEELING SOB. PT IS ON BIPAP. PT HAS IV 22G ON LEFT HAND SALINE LOCKED. PT HAS MILES CATHETER. SKIN INTACT. RT AND CHARGE NURSE AT BEDSIDE. SAFETY PRECAUTIONS IN PLACE. CALL LIGHT WITHIN REACH. HOB >30 DEGREES.
--- NOTE | 2019-06-13 00:45 | NUR ---
DR. PORRAS AT BEDSIDE DISCUSSING INTUBATION PROCEDURE W/ PT. HUMAN RESOURCES BENEFITS ASSISTANT WAS NEEDED.
--- NOTE | 2019-06-13 02:15 | NUR ---
DR MARR @ BEDSIDE TO REASSESS PT. PT RESPONDING TO VERBAL PROMPTS, DENIES SOB CHEST PAIN @ THIS TIME.
--- NOTE | 2019-06-13 04:30 | NUR ---
CHECKED ON PT. NO SIGNS OF DISTRESS. PROVIDED PT W/ CUP OF WATER. SAFETY MEASURES CHECKED. WILL CONTINUE TO MONITOR.
--- NOTE | 2019-06-13 05:15 | NUR ---
RT AT BEDSIDE FOR REPEAT ABGS
[2019-06-13 06:03] LABS: BASOPHILS % (AUTO) 0.3 % (0.0-2.0); EOSINOPHILS % (AUTO) 0.4 % (0.0-4.0); HEMATOCRIT 47.7 % (36-48); HEMOGLOBIN 14.6 g/dL (12.0-16.0); LYMPHOCYTES # (AUTO) 1.7 K/uL (2.5-16.5); LYMPHOCYTES % (AUTO) 18.7 % (20.5-51.1); MEAN CORPUSCULAR HEMOGLOBIN 27 pg (27-31); MEAN CORPUSCULAR HGB CONC 31 g/dL (33-37); MEAN CORPUSCULAR VOLUME 87.4 fL (80-94); MONOCYTES # (AUTO) 0.8 K/uL (0.8-1.0); MONOCYTES % (AUTO) 9.2 % (1.7-9.3); NEUTROPHILS # (AUTO) 6.3 K/uL (1.8-7.7); NEUTROPHILS % (AUTO) 71.4 % (42.2-75.2); PLATELET COUNT (AUTO) 136 K/uL (140-450); RED BLOOD CELL COUNT(AUTO) 5.46 MIL/uL (4.20-5.40); RED CELL DISTRIBUTION WIDTH 15.5 % (11.6-13.7); WHITE BLOOD COUNT (AUTO) 8.9 K/uL (4.8-10.8)
[2019-06-13 06:31] LABS: CREATININE 0.5 mg/dL (0.6-1.3); POTASSIUM 4.2 mmol/L (3.5-5.1)
[2019-06-13] MEDS: ALBUTEROL SULFATE/IPRATROPIU 3 ML SOL IH SCH ×3 (06:36→18:43)
[2019-06-13] MEDS: BUDESONIDE 0.5 MG/2 ML NEBU INH SCH ×2 (06:37→18:43)
--- NOTE | 2019-06-13 06:37 | NUR ---
REC'D PT ON YAHAIRA V60 BIPAP SETTINGS 20/5 RR 20 FIO2 60% ALARMS ON AND AUDIBLE AND AMBU BAG AT HOB AND BIPAP IS PLUGGED INTO RED OUTLET, I\L TX GIVEN WITH DUONEB 3ML WITH NO ADVERSE REACTION POST TX, B\S ARE DIMINISHED BILATERALLY, PT IS WEARING MED FACE MASK WITH PROTETIC GEL IN PLACE PT IS AWAKE
[2019-06-13 06:41] LABS: CHOL/HDL RATIO 3.4 (1-4.5)
[2019-06-13 06:51] LABS: ANION GAP 0.3 (8-16)
[2019-06-13 06:52] LABS: CARBON DIOXIDE 51.9 mmol/L (21-32)
--- NOTE | 2019-06-13 07:14 | NUR ---
ENDORSED PT TO DAY SHIFT NURSE EMILE. PT IS ASLEEP NO SIGNS OF DISTRESS. BED IN LOW POSITION. CALL LIGHT WITHIN REACH.
--- NOTE | 2019-06-13 07:30 | NUR ---
RECEIVED BEDSIDE REPORT FROM ELECTRONIC SCALE TESTER RN. PT IS AWAKE, AAOX4, ABLE TO MAKE NEEDS KNOWN AND FOLLOWS COMMANDS. PERRL. TEMP 99.1. DENIES PAIN. NORMAL SINUS RHYTHM ON MONITOR. S1 S2 HEARD. PT IS ON BIPAP 20/5, FIO2 50%, RR 20. BREATHING EVEN AND UNLABORED. LUNGS SOUND CLEAR BILATERALLY, DIMINISHED AT BASES. PERIPHERAL IVS G 20 TO RIGHT FOREARM AND G22 TO RIGHT HAND ASYMPTOMATIC, PATENT AND INTACT, SALINE LOCKED. ABDOMEN ROUND, SOFT, NONTENDER W/ ACTIVE BOWEL SOUNDS. MILES CATH IN PLACE DRAINING CLEAR YELLOW URINE TO GRAVITY. SKIN IS INTACT, DRY AND WARM TO TOUCH. PULSES PALPABLE TO ALL EXTREMITIES. CAP REFILL < 3 SEC. HOB AT 30 DEGREES. BED IN LOWEST POSITION LOCKED. CALL LIGHT WITHIN REACH. NO SIGNS OF DISTRESS NOTED AT THIS TIME. WILL CONTINUE TO MONITOR.
--- NOTE | 2019-06-13 07:55 | NUR ---
DR. GREGORY AND RESIDENT GROUP IN TO SEE PT. WILL FOLLOW UP ON ORDERS.
--- NOTE | 2019-06-13 08:07 | NUR ---
DISCHARGE PLANNING: THIS IS A 43 YEAR OLD FEMALE PATIENT FROM HOME, WHO CAME IN DUE TO SOB X 1 MONTH. PAST MEDICAL HISTORY INCLUDE MORBID OBESITY, CHF, COPD, LEXIE AND HTN. INITIAL DIAGNOSIS OF CHF EXACERBATION. CURRENT LABS INCLUDE WBC 8.9, H/H 14.6/47.7, NA/K 143/4.2, CARBON DIOXIDE 51.9, BUN/CREA 10/0.5. UDS NEGATIVE. MRSA NARES AND BLOOD CULTURES PENDING. ON ROCEPHIN, ZITHROMAX AND LASIX IV. CARDIO AND PULMO CONSULTS IN PLACE. ON FIO2 60%. DC PLAN PENDING ON PATIENT'S RESPONSE TO TREATMENT.
[2019-06-13] MEDS: FUROSEMIDE 40 MG/4 ML VIAL IVP SCH ×2 (08:10→16:18)
[2019-06-13] MEDS: AZITHROMYCIN 250 MG TAB PO SCH (08:26)
[2019-06-13] MEDS: DOCUSATE SODIUM 100 MG GELCAP PO SCH ×2 (08:26→20:32)
--- NOTE | 2019-06-13 08:29 | NUR ---
MEDICATIONS ADMINISTERED ORDERED. PT TOLERATED WELL.
--- NOTE | 2019-06-13 08:34 | NUR ---
PATIENT HAS BEEN SCREENED AND CATEGORIZED MODERATE NUTRITION RISK. PATIENT WILL BE SEEN WITHIN 3-5 DAYS OF ADMISSION. 06/15/19 06/17/[address]
[2019-06-13] MEDS ORDERED: FUROSEMIDE 20 MG TAB PO SCH (09:00)
--- NOTE | 2019-06-13 09:20 | NUR ---
PT HAD PHYSICAL THERAPY SESSION. TOLERATED WELL. PT SITTING AT BEDSIDE RECLINER CHAIR AFTER PHYSICAL THERAPY. STILL ON BIPAP. VSS. CALL LIGHT WITHIN REACH. SAFETY PRECAUTIONS IN PLACE.
[2019-06-13] MEDS ORDERED: BISACODYL 10 MG SUPP RC SCH (09:30)
[2019-06-13] MEDS ORDERED: PROBIOTIC SCREEN 1 EA MISC MC PRN (09:35)
--- NOTE | 2019-06-13 10:54 | NUR ---
ECHOCARDIOGRAM AT BEDSIDE. VSS. SAFETY PRECAUTIONS IN PLACE. WILL CONTINUE TO MONITOR.
--- NOTE | 2019-06-13 10:55 | NUR ---
DR. GLORIA IN TO SEE PT. WILL FOLLOW UP ON ORDERS. Addendum: 06/13/19 at 1126 by Max Stephen RN PER DR. GLORIA, DO NOT TAKE OFF BIPAP, OK TO SKIP MEALS TODAY. ORDER NOTED. RT AT BEDSIDE.
[2019-06-13] MEDS: DEXT 5% / NACL 0.45% 1,000 ML IV SCH (11:26)
--- NOTE | 2019-06-13 11:30 | NUR ---
PT REFUSED DULCOLAX SUPPOSITORY STATING THAT SHE HAD LARGE AMOUNT OF SOFT BOWEL MOVEMENT EARLY THIS MORNING. DR. TOLENTINO MADE AWARE.
--- NOTE | 2019-06-13 13:10 | NUR ---
PT BACK TO BED, ASSISTED BY PHYSICAL THERAPIST. STILL ON BIPAP. NO SOB OR S/SX OF ACUTE DISTRESS NOTED AT THIS TIME.
--- NOTE | 2019-06-13 15:30 | NUR ---
NO CHANGE IN CONDITION. PT TOLERATING BIPAP. AAOX4. DENIES PAIN. AFEBRILE. VSS.
--- NOTE | 2019-06-13 16:00 | NUR ---
MILES CARE, SPONGE BATH GIVEN. TURNED AND REPOSITIONED, PRESSURE AREAS OFF LOADED. PT ABLE TO ASSIST WITH REPOSITIONING. NO DISTRESS NOTED. SAFETY MEASURES IN PLACE. CALL LIGHT WITHIN REACH.
--- NOTE | 2019-06-13 17:16 | NUR ---
PT TALKING TO SON AND DAUGHTER AT BEDSIDE. UPDATES GIVEN ON PT'S CONDITION. SAFETY MEASURES ENSURED.
--- NOTE | 2019-06-13 18:43 | NUR ---
RECEIVED PATIENT ON BIPAP AT DOCUMENTED SETTINGS. SKIN GEL BARRIER IN PLACE; SKIN INTACT, NO REDNESS. BIPAP PLUGGED INTO CORRECT OUTLET WITH WHEELS LOCKED. ALARMS ON AND AUDIBLE. SCHEDULED BREATHING TREATMENTS ADMINISTERED. TOLERATED TXs WELL WITHOUT ADVERSE SIDE EFFECTS. NO ACUTE RESPIRATORY DISTRESS NOTED AT THIS TIME. WILL CONTINUE TO MONITOR.
--- NOTE | 2019-06-13 18:50 | NUR ---
PT SEEN AND EXAMINED BY DR. CESPEDES AT BEDSIDE. WILL FOLLOW UP WITH ANY NEW ORDERS.
--- NOTE | 2019-06-13 19:11 | NUR ---
PT RECEIVED FROM AM SHIFT RN. PT A&OX4. PT ON BIPAP. FIO2 40, RR 20. IV SITE R HAND 22 GAUGE, AND R FOREARM 20. INFUSING D5 1/2 NS AT 50ML/HR. SINUS RHYTHM ON MONITOR. MILES CATHETER IN PLACE. HOB 30 DEGREES. BED LOCKED IN LOWEST POSITION. WILL CONTINUE TO MONITOR. Addendum: 06/13/19 at 1931 by Arvin Duenas RN HEART SOUNDS HEART S1 AND S2, LUNG SOUNDS CLEAR. ABDOMEN SOFT AND ROUND, BOWEL SOUNDS ACTIVE. CAP REFILL LESS THAN 2 SECONDS. SKIN INTACT, WARM AND DRY. DENIES PAIN.
--- NOTE | 2019-06-13 19:11 | NUR ---
REPORT GIVEN TO NUMERICAL CONTROL OPERATOR RN FOR CONTINUITY OF CARE. PT IS IN STABLE CONDITION.
--- NOTE | 2019-06-13 20:30 | NUR ---
PT REFUSED COLACE. PT STATED SHE WANTS TO TAKE IT TOMORROW.
--- NOTE | 2019-06-13 20:43 | NUR ---
DR PORRAS IN TO ASSESS PT.
--- NOTE | 2019-06-13 21:20 | NUR ---
PT DESAT TO 85%. FIO2 INCREASED TO 60% WILL TITRATE TO MAINTAIN ADEQUATE OXYGENATION.
--- NOTE | 2019-06-13 21:50 | NUR ---
BIPAP CHECK DONE. PATIENT CURRENTLY SATURATING 95% AT 60% DECREASED TO 50%. PT O2 SAT 92%. NO ACUTE RESPIRATORY DISTRESS NOTED. WILL CONTINUE TO MONITOR.
--- NOTE | 2019-06-13 22:06 | NUR ---
PT A&O X3. PT RESTING IN BED, WATCHING TELEVISION. PT ON BIPAP, FIO2 50% O2 SAT 92%. HOB 30 DEGREES. BED LOCKED IN LOWEST POSITION. WILL CONTINUE TO MONITOR.
[2019-06-14] VITALS (17 sets, daily range): BP systolic 93–156; BP diastolic 40–114
--- NOTE | 2019-06-14 | NUR ---
PT HAS EYES CLOSED, RESTING IN BED. PT ON BIPAP. O2 SAT AT 94%. RESPIRATIONS EVEN AND UNLABORED. CHEST RISE IS SYMMETRICAL. HOB 30 DEGREES. BED LOCKED IN LOWEST POSITION. WILL CONTINUE TO MONITOR.
--- NOTE | 2019-06-14 02:45 | NUR ---
PT ON BIPAP, PT HAS EYES CLOSED, RESTING IN BED. RESPONDS TO NAME. RESPIRATIONS EVEN AND UNLABORED. CHEST RISE IS SYMMETRICAL. HOB 30 DEGREES. BED LOCKED IN LOWEST POSITION. WILL CONTINUE TO MONITOR.
--- NOTE | 2019-06-14 04:30 | NUR ---
SIDING INSTALLER IN TO DRAW MORNING LABS.
[2019-06-14] MEDS: DEXT 5% / NACL 0.45% 1,000 ML IV SCH (05:56)
[2019-06-14] MEDS: BUDESONIDE 0.5 MG/2 ML NEBU INH SCH (06:28)
[2019-06-14] MEDS: ALBUTEROL SULFATE/IPRATROPIU 3 ML SOL IH SCH ×3 (06:28→19:00)
[2019-06-14 06:30] LABS: CREATININE 0.7 mg/dL (0.6-1.3); POTASSIUM 3.4 mmol/L (3.5-5.1)
[2019-06-14 06:34] LABS: HEMATOCRIT 51.3 % (36-48); HEMOGLOBIN 16.3 g/dL (12.0-16.0); MAGNESIUM 1.8 mg/dL (1.8-2.4); MEAN CORPUSCULAR HEMOGLOBIN 27 pg (27-31); MEAN CORPUSCULAR HGB CONC 32 g/dL (33-37); MEAN CORPUSCULAR VOLUME 85.3 fL (80-94); PHOSPHORUS 3.4 mg/dL (2.5-4.9); PLATELET COUNT (AUTO) 209 K/uL (140-450); RED BLOOD CELL COUNT(AUTO) 6.01 MIL/uL (4.20-5.40); RED CELL DISTRIBUTION WIDTH 15.8 % (11.6-13.7); WHITE BLOOD COUNT (AUTO) 9.2 K/uL (4.8-10.8)
--- NOTE | 2019-06-14 06:45 | NUR ---
PT RESTING IN BED, ON BIPAP. RESPIRATIONS EVEN AND UNLABORED. WILL CONTINUE TO MONITOR.
--- NOTE | 2019-06-14 06:53 | NUR ---
2ND UNIT OF PACKED RBCS STARTED, WILL CONTINUE TO MONITOR. Addendum: 06/14/19 at 0723 by Arvin Duenas RN DOCUMENTED ON WRONG PT. PLEASE DISREGARD.
[2019-06-14 07:02] LABS: ANION GAP 10.3 (8-16)
--- NOTE | 2019-06-14 07:23 | NUR ---
REPORT GIVEN TO AM SHIFT RN FOR CONTINUITY OF CARE.
--- NOTE | 2019-06-14 07:32 | NUR ---
BEDSIDE REPORT RECEIVED FROM PNEUMATIC TESTER MECHANIC NURSE, PT AWAKE ALERT, TALKING ON THE PHONE, RESP EVEN UNLABORED ON BIPAP 20/5, FIO2 45%, BS CLEAR DIMINISHED TO AUSC, SKIN WARM DRY COLOR WNL, NO SIGNIFICANT EDEMA NOTED, PT ON MONITOR SR, HR 90, BP 104/63, O2SAT 93% TEMP 98.8, PIV TO RAH 22G, RFA 20G, D51/2NS AT 50ML/HR, ABD SOFT, NON TENDER, +BS X4Q, MILES CATH DRAINING TO GRAVITY, WILL DC PER ORDER, PT DENIES PAIN OR DISCOMFORT AT THIS TIME, PT REPOSITIONED FOR COMFORT, PT ABLE TO REPOSITION ON HER OWN WITH MINIMAL ASSIST, POC REVIEWED, ALL SAFETY MEASURES IN PLACE, WILL CONTINUE TO MONITOR.
[2019-06-14 07:39] LABS: CARBON DIOXIDE 42.1 mmol/L (21-32)
[2019-06-14 08:03] LABS: LYMPHOCYTES % (MANUAL) 25 % (20-46); MONOCYTES % (MANUAL) 9 % (5-12)
--- NOTE | 2019-06-14 08:05 | NUR ---
DR GREGORY AND MEDICAL TEAM AT BEDSIDE.
[2019-06-14] MEDS: AZITHROMYCIN 250 MG TAB PO SCH (08:30)
[2019-06-14] MEDS: DOCUSATE SODIUM 100 MG GELCAP PO SCH ×2 (08:31→20:12)
--- NOTE | 2019-06-14 08:38 | NUR ---
PHYSICAL THERAPY AT BEDSIDE
--- NOTE | 2019-06-14 09:00 | NUR ---
PT SITTING UP IN CHAIR, TALKING ON THE PHONE, REMAINS ON BIPAP, REMAINS ON MONITOR, VSS, DENIES ANY PAIN OR NEEDS, WILL CONTINUE TO MONITOR
--- NOTE | 2019-06-14 09:50 | NUR ---
PT SITTING UP IN CHAIR, TALKING ON THE PHONE, REMAINS ON BIPAP, REMAINS ON MONITOR, VSS, DENIES ANY PAIN OR NEEDS, WILL CONTINUE TO MONITOR
--- NOTE | 2019-06-14 10:00 | NUR ---
MILES CATH REMOVED BY CHARGE NURSE DEYSI.
--- NOTE | 2019-06-14 10:32 | NUR ---
PT ASSISTED TO BEDSIDE COMMODE, SOFT BMX1, PERICARE DONE, PT RETURNED BACK TO BED.
--- NOTE | 2019-06-14 11:09 | NUR ---
DR GLORIA AT BEDSIDE, TRANSFER TO [facility], [place] FOR PT TO COME OFF OF BIPAP FOR MEALS PER DR GLORIA.
--- NOTE | 2019-06-14 12:25 | NUR ---
PT ASSISTED TO SIT UP AT SIDE OF BED, CHANGED TO 4L NC O2, EATING LUNCH WITHOUT PROBLEM.
--- NOTE | 2019-06-14 15:12 | NUR ---
PT SLEEPING QUIETLY IN NO ACUTE DISTRESS, PT ON BIPAP, MASK RE POSIITONED, VITALS STABLE ON MONTIOR, WILL CONTINUE TO MONTIOR.
[2019-06-14] MEDS ORDERED: POTASSIUM CHLORIDE 10 MEQ TABER PO SCH (17:00)
--- NOTE | 2019-06-14 17:25 | NUR ---
PT ASSISTED UP TO SIT AT SIDE OF BED FOR DINNER, PT APPEARS IN NO ACUTE DSITRESS, RESP EVEN UNLABORED, BIBI NC 4L O2 WELL, O2 SAT 96%, WILL TRANSFER PT TO 112B WHEN DONE WITH DINNER
--- NOTE | 2019-06-14 18:15 | NUR ---
USING TELEPHONE SEAT PACK INSPECTOR #[id number] PT INFORMED OF TRANSFER TO 112B.
--- NOTE | 2019-06-14 18:30 | NUR ---
PT ARRIVED UNIT VIA WHEELCHAIR ACCOMPANIED WITH ICU NURSE CLAYTON. PT IS [place] AND SPEAKS CITIZEN OF [place]. RESPIRATION EVEN AND UNLABORED ON 4LPM VIA NC. NO SIGNS OF DISTRESS NOTED. IV ON RH 22, SL AND RFA 20, CLEAN AND INTACT, INFUSING PER MD ORDER. SKIN CLEAN AND DRY. PT IS CONTINENT AND ABLE TO AMBULATE WITH STANDBY ASSIST. ORIENTED PT TO THE ROOM, AND DEMONSTRATED ON HOW TO USE THE CALL LIGHT, TV, TELEPHONE, BED REMOTE AND LIGHT. VITAL SIGNS TAKEN; BP 120/80, PULSE 91, SPO2 93% WITH 4LPM VIA NC, RR 20, DENIED PAIN, SOB AND DIZZINESS. TELE MONITOR ATTACHED. SAFETY MEASURES IN PLACE. BED IN LOW POSITION AND CALL LIGHT WITHIN REACH. INSTRUCTED PT TO USE THE CALL LIGHT FOR ANY ASSISTANCE AND PT AWARE.
--- NOTE | 2019-06-14 18:35 | NUR ---
PT TAKEN TO 112B IN WHEELCHAIR, WITH 4L NC O2, PT AMBULATED TO BATHROOM WITH MINIMAL ASSIST, THEN AMBULATED TO BED WITH STEADY GAIT, REPORT GIVEN TO CRISTY SAMANO, ALL BELONGINGS TAKEN WITH PATIENT. (RED PURSE, BLACK CELLPHONE, BLACK CAR BRACER, SHOES, CLOTHING)
--- NOTE | 2019-06-14 18:45 | NUR ---
PT REQUESTED FOR SOME ICE WATER, PROVIDED. PT AWAKE AND TALKING ON HER PHONE. NO SIGNS OF DISTRESS NOTED. TELE MONITOR ATTACHED. SAFETY MEASURES IN PLACE.
--- NOTE | 2019-06-14 19:10 | NUR ---
ENDORSED PT AT BEDSIDE TO CABLE SPOOLER NURSE LIZA FOR CONTINUITY OF CARE. PT AWAKE AND RESTING ON BED. NO SIGNS OF DISTRESS NOTED. PT IS IN STABLE CONDITION. TELE MONITOR ATTACHED. SAFETY MEASURES IN PLACE.
--- NOTE | 2019-06-14 19:11 | NUR ---
RECEIVED PT FROM AM SHIFT NURSE. PT IS AAOX4 AND SPEAKS [place]. OBESITY NOTED. RESPIRATION EVEN AND UNLABORED ON 3LPM VIA NC. NO SIGNS OF DISTRESS NOTED. AMBULATORY W/ MAX ASSIST.IV ON RH 22, SL AND RFA 20, CLEAN AND INTACT, INFUSING PER MD ORDER. SKIN CLEAN AND DRY. PT IS CONTINENT AND ABLE TO AMBULATE WITH STANDBY ASSIST. TELE MONITOR ATTACHED. SAFETY MEASURES IN PLACE. BED IN LOW POSITION AND CALL LIGHT WITHIN REACH. INSTRUCTED PT TO USE THE CALL LIGHT FOR ANY
--- NOTE | 2019-06-14 19:16 | NUR ---
PATIENT ASSESSMENT. FOUND PT ON 3 L NASAL CANNULA. SPO2 IS 94%. BREATH SOUNDS CLEAR DIMINISHED. NO SOB OR DISTRESSED NOTED. PT WANTS TO SLEEP. REFUSED HHN TX AND REFUSED TO WEAR BIPAP AT THIS TIME. RN AWARE. WILL CONTINUE TO MONITOR.
--- NOTE | 2019-06-14 21:05 | NUR ---
PT PLACED BIPAP ON, WILL CONTINUE TO MONITOR
--- NOTE | 2019-06-14 21:20 | NUR ---
PT ASKED TO BE BACK ON BIPAP. PLACED PT ON BIPAP WITH CHARTED SETTINGS. BIPAP CONNECTED TO RED OUTLET. ALARMS AUDIBLE. RN AWARE. PT IS COMFORTABLE. WILL CONTINUE TO MONITOR.
--- NOTE | 2019-06-14 22:15 | NUR ---
CHECKED ON PATIENT, TOLERATING BIPAP, INFORMED THE RT WHEN THE BIPAP ALARMS GOES OFF
[2019-06-15] VITALS: BP 116/75
--- NOTE | 2019-06-15 01:20 | NUR ---
PT TOOL OFF THE BIPAP MACHINE, SHE SAID SHE FEELS CLAUSTROPHOBIC WITH IT. JW RAE, EXPLAINED THE RSIKS AND BENEFITS OF THE BIPAP, HIS PCO2 LEVELS AND PT SAID SHE WILL TRY LATER Addendum: 06/15/19 at 0420 by Yolande Azevedo RN WRONG PATIENT
[2019-06-15] MEDS: DEXT 5% / NACL 0.45% 1,000 ML IV SCH ×2 (03:05→21:41)
--- NOTE | 2019-06-15 03:30 | NUR ---
PT ASLEEP COMFORTABLY ON BIPAP WITH CHARTED SETTINGS. CONTINUOS PULSEOX ON. WILL CONTINUE TO MONITOR.
--- NOTE | 2019-06-15 04:24 | NUR ---
PT SLEEPING, PT CAN TURN FROM SIDE TO SIDE BY HERSELF. WILL CONTINURE TO MONITOR
[2019-06-15 06:00] VITALS: BP 116/74
[2019-06-15 07:08] LABS: BASOPHILS # (AUTO) 0.1 K/uL (0.00-0.22); BASOPHILS % (AUTO) 1.1 % (0.0-2.0); EOSINOPHILS # (AUTO) 0.1 K/uL (0-0.4); EOSINOPHILS % (AUTO) 1.1 % (0.0-4.0); HEMATOCRIT 49.3 % (36-48); HEMOGLOBIN 16.5 g/dL (12.0-16.0); LYMPHOCYTES # (AUTO) 1.5 K/uL (2.5-16.5); LYMPHOCYTES % (AUTO) 22.5 % (20.5-51.1); MEAN CORPUSCULAR HEMOGLOBIN 27 pg (27-31); MEAN CORPUSCULAR HGB CONC 33 g/dL (33-37); MONOCYTES # (AUTO) 0.8 K/uL (0.8-1.0); MONOCYTES % (AUTO) 11.4 % (1.7-9.3); NEUTROPHILS # (AUTO) 4.4 K/uL (1.8-7.7); NEUTROPHILS % (AUTO) 63.9 % (42.2-75.2); PLATELET COUNT (AUTO) 147 K/uL (140-450); RED CELL DISTRIBUTION WIDTH 15.2 % (11.6-13.7); WHITE BLOOD COUNT (AUTO) 6.9 K/uL (4.8-10.8)
[2019-06-15 07:14] LABS: ANION GAP 7.4 (8-16); CARBON DIOXIDE 39.6 mmol/L (21-32); CREATININE 0.6 mg/dL (0.6-1.3)
--- NOTE | 2019-06-15 07:35 | NUR ---
RECEIVED PT FROM STITCH WHEELER NURSELIZA, PT IS AWAKE AND IS ON A BIPAP, SIDE RAILS ARE UP AND CALL LIGHT WITHIN REACH, PERIPHERAL LINES ON THE RT HAND G. 22 ON SALINE LOCK AND ON THE RT FA G. 20 WITH D5 1/2 NS INFUSING AT 50ML/HR INFUSING, PT DENIES PAIN AND NO SOB NOTED, O2 SATURATION IS AT 93%, ON BIPAP, WILL MONITOR PT.
--- NOTE | 2019-06-15 08:45 | NUR ---
IV LINE WAS INFILTRATED ON THE RT FA AND WAS REMOVED NOW.
[2019-06-15] MEDS: DOCUSATE SODIUM 100 MG GELCAP PO SCH ×2 (09:26→20:34)
[2019-06-15] MEDS: ALBUTEROL SULFATE/IPRATROPIU 3 ML SOL IH SCH ×3 (09:26→19:28)
[2019-06-15] MEDS: BUDESONIDE 0.5 MG/2 ML NEBU INH SCH ×3 (09:26→19:28)
[2019-06-15] MEDS: AZITHROMYCIN 250 MG TAB PO SCH (09:27)
--- NOTE | 2019-06-15 09:28 | NUR ---
SCHEDULED AM MEDICATIONS WERE GIVEN TO PT NOW, TEACHING GIVEN AND PT VERBALIZED UNDERSTANDING, WILL MONITOR PT.
--- NOTE | 2019-06-15 09:30 | NUR ---
BREATHING TX WAS BEING GIVEN TO PT NOW, RT ON THE BEDSIDE.
--- NOTE | 2019-06-15 09:33 | NUR ---
HEPARIN SUB WAS GIVEN VIA ABDOMEN, PARAMETER CHECK, TEACHING WAS GIVEN TO PT AND VERBALIZED UNDERSTANDING, WILL MONITOR PT.
[2019-06-15] MEDS ORDERED: KCL 20 MEQ/WATER INJ PREMIX 200 ML IV ONE (10:25)
[2019-06-15] MEDS ORDERED: POTASSIUM CHLORIDE 40 MEQ, LIDOCAINE MPF 1% 25 MG in NACL 0.9% 250 ML IV SCH (11:30)
--- NOTE | 2019-06-15 11:39 | NUR ---
CALLED DR. VANE TOLENTINO [phone] TO REVIEW ABG SAMPLE REPORT NO NEW ORDERS
[2019-06-15 12:00] VITALS: BP 109/43
[2019-06-15 12:08] LABS: APPEARANCE,URINE SL CLOUDY (CLEAR); BILIRUBIN,URINE 1+ (NEGATIVE); BLOOD, URINE NEGATIVE (NEGATIVE); COLOR,URINE YELLOW (YELLOW); LEUKOCYTE ESTERASE ,URINE NEGATIVE (NEGATIVE); NITRITE, URINE NEGATIVE (NEGATIVE); UGLUCOSE NEGATIVE (NEGATIVE)
[2019-06-15 12:56] LABS: HYALINE CASTS, URINE 0-10 /LPF (None Seen); RBC,URINE 0 /HPF (0-5); WBC,URINE 0-5 /HPF (0-5)
[2019-06-15 16:00] VITALS: BP 113/71
--- NOTE | 2019-06-15 16:53 | NUR ---
AFTERNOON MEDICATIONS GIVEN. PT. TOLERATED WELL. WILL CONTINUE TO MONITOR.
[2019-06-15] MEDS ORDERED: POTASSIUM CHLORIDE 10 MEQ TABER PO SCH (18:00)
--- NOTE | 2019-06-15 19:15 | NUR ---
ENDORSED PT. TO PROCUREMENT SERVICES MANAGER NURSE FOR CONTINUITY OF CARE.
--- NOTE | 2019-06-15 19:16 | NUR ---
RECEIVED PT FROM AM SHIFT NURSE. PT IS AAOX4 AND SPEAKS SAMMARINESE. OBESITY NOTED. RESPIRATION EVEN AND UNLABORED ON 3LPM VIA NC. NO SIGNS OF DISTRESS NOTED. AMBULATORY W/ MAX ASSIST.IV ON RH 22 RUNNING IVF ORDERED, CLEAN AND INTACT, INFUSING PER MD ORDER. SKIN CLEAN AND DRY. PT IS CONTINENT AND ABLE TO AMBULATE WITH STANDBY ASSIST. TELE MONITOR ATTACHED. SAFETY MEASURES IN PLACE. BED IN LOW POSITION AND CALL LIGHT WITHIN REACH. INSTRUCTED PT TO USE THE CALL LIGHT FOR ANY
[2019-06-15 19:38] VITALS: BP 109/59
--- NOTE | 2019-06-15 22:00 | NUR ---
pt placed on bipap on documented settings. bipap plugged into red outlet.alarms audible and working. pt remains stable and is in no distress. will cont to monitor
--- NOTE | 2019-06-15 22:01 | NUR ---
PT ON BIPAP PRN ORDERED
[2019-06-16] VITALS: BP 105/60
--- NOTE | 2019-06-16 02:00 | NUR ---
IVF ON THE RIGHT HAND D/C PER PATIENT PAIN FELT. STARTED IV ON THE LEFT HAND G 22 PATENT
--- NOTE | 2019-06-16 03:00 | NUR ---
PT COMPLIANT W/ BIPAP AND CONTINUES TO BE ON BIPAP
--- NOTE | 2019-06-16 04:10 | NUR ---
WENT TO BATHROOM AND PT STEADY GAIT
--- NOTE | 2019-06-16 05:00 | NUR ---
PT REMAINS ON DOCUMENTED SETTING. BIPAP PLUGGED INTO RED OUTLET. BMV AT BEDSIDE. ALARMS AUDIBLE AND WORKING. CONT PULSE OX RUNNING. PT APPEARS COMFORTABLE. NO DISTRESS NOTED. WILL CONT TO MONITOR
[2019-06-16 06:00] VITALS: BP 106/55
[2019-06-16] MEDS: BUDESONIDE 0.5 MG/2 ML NEBU INH SCH (06:49)
[2019-06-16] MEDS: ALBUTEROL SULFATE/IPRATROPIU 3 ML SOL IH SCH ×2 (06:49→13:03)
--- NOTE | 2019-06-16 07:08 | NUR ---
PT IN STABLE CONDITION WILL ENDORSE TO NEXT SHIFT
--- NOTE | 2019-06-16 07:10 | NUR ---
RECEIVED BEDSIDE REPORT FROM NIGHTSHIFT NURSE. PT RESTING IN BED. ABLE TO MAKE NEEDS KNOWN. RESPIRATIONS EVEN AND UNLABORED WITH NO SOB OR RESPIRATORY DISTRESS. SKIN WARM AND DRY TO TOUCH. IV SITE IN LEFT HAND 22G IS CLEAN, DRY, AND INTACT. SAFETY MEASURES IN PLACE. WILL CONTINUE TO MONITOR.
[2019-06-16 07:17] LABS: BASOPHILS % (AUTO) 0.5 % (0.0-2.0); EOSINOPHILS # (AUTO) 0.1 K/uL (0-0.4); EOSINOPHILS % (AUTO) 0.9 % (0.0-4.0); HEMATOCRIT 47.5 % (36-48); HEMOGLOBIN 15.9 g/dL (12.0-16.0); LYMPHOCYTES # (AUTO) 1.4 K/uL (2.5-16.5); LYMPHOCYTES % (AUTO) 15.1 % (20.5-51.1); MEAN CORPUSCULAR HEMOGLOBIN 27 pg (27-31); MEAN CORPUSCULAR HGB CONC 34 g/dL (33-37); MEAN CORPUSCULAR VOLUME 81.2 fL (80-94); MONOCYTES # (AUTO) 0.8 K/uL (0.8-1.0); NEUTROPHILS # (AUTO) 6.7 K/uL (1.8-7.7); NEUTROPHILS % (AUTO) 74.5 % (42.2-75.2); PLATELET COUNT (AUTO) 133 K/uL (140-450); RED BLOOD CELL COUNT(AUTO) 5.85 MIL/uL (4.20-5.40); RED CELL DISTRIBUTION WIDTH 15.6 % (11.6-13.7)
[2019-06-16 07:32] LABS: ANION GAP 4.9 (8-16); CREATININE 0.6 mg/dL (0.6-1.3); POTASSIUM 3.9 mmol/L (3.5-5.1)
[2019-06-16 07:47] LABS: MAGNESIUM 1.8 mg/dL (1.8-2.4)
[2019-06-16 08:00] VITALS: BP 127/52
[2019-06-16] MEDS: DOCUSATE SODIUM 100 MG GELCAP PO SCH (09:13)
[2019-06-16] MEDS: AZITHROMYCIN 250 MG TAB PO SCH (09:13)
--- NOTE | 2019-06-16 09:16 | NUR ---
ADMINISTERED SCHED MED PRESCRIBED PER MD ORDER. PT TOLERATED WELL. MEDICATION EDUCATION PERFORMED. PT VERBALIZED UNDERSTANDING. SAFETY MEASURES IN PLACE. WILL CONTINUE TO MONITOR.
--- NOTE | 2019-06-16 11:20 | NUR ---
HOURLY ROUNDING. PT RESTING IN BED. ABLE TO MAKE NEEDS KNOWN. RESPIRATIONS EVEN AND UNLABORED WITH NO SOB OR RESPIRATORY DISTRESS. SKIN WARM AND DRY TO TOUCH. SAFETY MEASURES IN PLACE. WILL CONTINUE TO MONITOR.
[2019-06-16 12:00] VITALS: BP 105/68
[2019-06-16] MEDS ORDERED: BUDE180P IH (12:14)
[2019-06-16] MEDS ORDERED: ALBU-118 IH (12:14)
--- NOTE | 2019-06-16 12:45 | NUR ---
PT SLEEPING IN BED. RESPONSIVE TO VERBAL AND TACTILE STIMULI. ABLE TO MAKE NEEDS KNOWN. RESPIRATIONS EVEN AND UNLABORED WITH NO SOB OR RESPIRATORY DISTRESS. SKIN WARM AND DRY TO TOUCH. SAFETY MEASURES IN PLACE. WILL CONTINUE TO MONITOR.
--- NOTE | 2019-06-16 14:20 | NUR ---
06/16/19 RD INITIAL ASSESSMENT COMPLETED PLEASE REFER TO NUTRITION ASSESSMENT UNDER CARE ACTIVITY FOR ESTIMATED NUTRITIONAL NEEDS. 1. CONTINUE CARDIAC DIET TOLERATED 2. RD PROVIDED NUTRITION EDUCATION AND MENU PLANNING SAMPLES IN [place] FOR WEIGHT MANAGEMENT 3. RD TO FOLLOW-UP 5-7 DAYS, LOW RISK NATASHA LEE, RD
[2019-06-16] MEDS ORDERED: IBUPROFEN 400 MG TAB PO PRN (14:25)
[2019-06-16 16:00] VITALS: BP 122/79
--- NOTE | 2019-06-16 16:18 | NUR ---
ADMINISTERED SCHED MED PRESCRIBED PER MD ORDER. PT TOLERATED WELL. MEDICATION EDUCATION PERFORMED. PT VERBALIZED UNDERSTANDING. SAFETY MEASURES IN PLACE. WILL CONTINUE TO MONITOR.
--- NOTE | 2019-06-16 16:21 | NUR ---
ADVANCE DIRECTIVE INFORMATION IN [place] GIVEN TO DR TOLENTINO TO EXPLAIN TO PT.
--- NOTE | 2019-06-16 17:45 | NUR ---
PT IS AWARE OF DC TODAY. PT SAID THAT HER RIDE WILL BE HERE BETWEEN [phone]. SAFETY MEASURES IN PLACE. WILL CONTINUE TO MONITOR.
[2019-06-16 18:46] VITALS: BP 122/79
[2019-06-16] MEDS: DEXT 5% / NACL 0.45% 1,000 ML IV SCH (19:11)
--- NOTE | 2019-06-16 19:15 | NUR ---
WENT OVER DC INSTRUCTIONS WITH PT. PT SIGNED APPROPRIATE FORMS. INSTRUCTED PT TO VISIT ED FOR ANY SIGNS OF DISTRESS. PT VERBALIZED UNDERSTANDING. PT REFUSED FLU VACCINE AND DOES NOT QUALIFY FOR PNA VACCINE. TELE MONITOR REMOVED, INTACT IV CANNULA, ID BAND, AND ALLERGY BAND REMOVED. PT CHANGED INTO HER OWN CLOTHES AND GATHERED HER BELONGINGS. PT WHEELED OUT TO PRIVATE VEHICLE. PT IS STABLE.
== END 2019-06-16 19:20 | disposition home or self-care (01) | DRG 133 ==
LOC: MED 11:17 → MMU 15:44 → MIC 06-13 00:20 → MTU 06-14 18:30
PROVIDERS: ADMIT General Practice; ATTEND General Practice
PROC: 5A09357 Assistance with Respiratory Ventilation, Less than 24 Consecutive Hours, Continuous Positive Airway Pressure (ICD-10-PCS; principal; 2019-06-12)
PROC: 5A1935Z Respiratory Ventilation, Less than 24 Consecutive Hours (ICD-10-PCS; 2019-06-13)
PROC: 5A09357 Assistance with Respiratory Ventilation, Less than 24 Consecutive Hours, Continuous Positive Airway Pressure (ICD-10-PCS; 2019-06-13)
PROC: 0BH17EZ Insertion of Endotracheal Airway into Trachea, Via Natural or Artificial Opening (ICD-10-PCS; 2019-06-13)
PROC: 5A09357 Assistance with Respiratory Ventilation, Less than 24 Consecutive Hours, Continuous Positive Airway Pressure (ICD-10-PCS; 2019-06-14)
DX: J96.21 Acute and chronic respiratory failure with hypoxia (principal); R65.11 Systemic inflammatory response syndrome (SIRS) of non-infectious origin with acute organ dysfunction; I50.43 Acute on chronic combined systolic (congestive) and diastolic (congestive) heart failure; J18.9 Pneumonia, unspecified organism; I27.20 Pulmonary hypertension, unspecified; E44.0 Moderate protein-calorie malnutrition; E66.2 Morbid (severe) obesity with alveolar hypoventilation; E83.39 Other disorders of phosphorus metabolism; J44.0 Chronic obstructive pulmonary disease with (acute) lower respiratory infection; J44.1 Chronic obstructive pulmonary disease with (acute) exacerbation; Z68.43 Body mass index [BMI] 50.0-59.9, adult; J96.22 Acute and chronic respiratory failure with hypercapnia; Z71.3 Dietary counseling and surveillance; Z91.19 Patient's noncompliance with other medical treatment and regimen; E87.6 Hypokalemia; Z88.8 Allergy status to other drugs, medicaments and biological substances; Z98.891 History of uterine scar from previous surgery; Z87.891 Personal history of nicotine dependence
CPT/HCPCS: 36415; 36600; 71045; 80048; 80053; 80305; 81001; 82803; 83036; 83605; 83690; 83735; 83880; 84100; 84443; 84484; 85025; 85610; 85730; 87040; 87081; 87804; 93005; 93308; 94640; 94660; 96374; 96375; 97110; 97112; 97116; 97161-GP; 97530; 99285; J0696; J1644; J1940; J2001; J3480; J7030; J7060; J7512; J7613; J7626; Q0092

== ENCOUNTER 2021-05-02 10:49 | Emergency (ER) | payer MEDICAID ==
[~2021-05-02] VITALS: Ht 154.9 cm; Wt 149.7 kg
[~2021-05-02 10:49] MED LIST changes: -FURO-572 PO
[2021-05-02 11:32] VITALS: BP 119/72
[2021-05-02] MEDS ORDERED: NAPR-54 PO (11:42)
[2021-05-02] MEDS ORDERED: AZIT250T4 PO (11:42)
[2021-05-02] MEDS ORDERED: PROM118S5 PO (11:42)
[2021-05-02 11:51] VITALS: BP 119/72
--- NOTE | 2021-05-02 11:51 | NUR ---
Patient discharged with v/s stable. Written and verbal after care instructions given and explained. Patient alert, oriented and verbalized understanding of instructions. Ambulatory with steady gait. All questions addressed prior to discharge. ID band removed. Patient advised to follow up with PMD. Rx of ZITHROMAX, NAPROXEN, AND PROMETHAZINE-DM SYRUP given. Patient educated on indication of medication including possible reaction and side effects. Opportunity to ask questions provided and answered.
== END 2021-05-02 11:51 | disposition home or self-care (01) ==
LOC: MED 10:49
DX: U07.1 COVID-19 (principal); I11.9 Hypertensive heart disease without heart failure; J44.9 Chronic obstructive pulmonary disease, unspecified; Z88.6 Allergy status to analgesic agent; Z88.5 Allergy status to narcotic agent
CPT/HCPCS: 99283

== ENCOUNTER 2022-08-04 10:13 | Emergency (ER) | payer MEDICAID ==
[~2022-08-04] VITALS: Ht 172.7 cm; Wt 117.9 kg
[~2022-08-04 10:13] MED LIST changes: +AZIT250T4 PO; +NAPR-54 PO; +PROM118S5 PO
[2022-08-04 10:24] VITALS: BP 145/83
[2022-08-04] MEDS ORDERED: KETOROLAC 30 MG/ML VIAL IM ONE (12:45)
[2022-08-04] MEDS ORDERED: NAPR-1704 PO (13:32)
[2022-08-04] MEDS ORDERED: PRED20TA5 PO (13:32)
== END 2022-08-04 13:42 | disposition home or self-care (01) ==
LOC: MED 10:13
DX: M16.12 Unilateral primary osteoarthritis, left hip (principal); M70.62 Trochanteric bursitis, left hip; E66.9 Obesity, unspecified; I10 Essential (primary) hypertension; I25.10 Atherosclerotic heart disease of native coronary artery without angina pectoris; J44.9 Chronic obstructive pulmonary disease, unspecified; J45.909 Unspecified asthma, uncomplicated; Z68.39 Body mass index [BMI] 39.0-39.9, adult; Z88.5 Allergy status to narcotic agent; Z88.8 Allergy status to other drugs, medicaments and biological substances; Y93.89 Activity, other specified
CPT/HCPCS: 73502; 81025; 96372; 99283; J1885